=== PATIENT | female | born 1990 | race Two or more races ===

== ENCOUNTER 2020-10-30 10:13 | Outpatient (REF) | payer MEDICAID, SELFPAY ==
[2020-10-31 08:39] LABS: BV Int Neg Control Negative (Negative); BV Int Pos Control Positive (Positive)
[2020-10-31 08:54] LABS: CT PCR NOT DETECTED (Not Detect.); NG PCR DETECTED (Not Detect.)
== END 2020-10-30 10:14 | disposition home or self-care (01) ==
LOC: HO.LAB 10:13
PROVIDERS: Visit Provider Advanced Practice Midwife
DX: Z11.3 Encounter for screening for infections with a predominantly sexual mode of transmission (principal); Z20.2 Contact with and (suspected) exposure to infections with a predominantly sexual mode of transmission
CPT/HCPCS: 87480; 87491; 87510; 87591; 87660; 99212

== ENCOUNTER → 2020-11-09 13:31 | Outpatient (BNVA) | payer MEDICAID, SELFPAY | PROVIDERS: Visit Provider Advanced Practice Midwife ==

== ENCOUNTER → 2020-11-10 12:50 | Outpatient (BNVA) | payer MEDICAID, SELFPAY | PROVIDERS: Visit Provider Advanced Practice Midwife | DX: A54.9 Gonococcal infection, unspecified (principal) | CPT/HCPCS: 96372; 99211; J0696 ==

== ENCOUNTER 2021-01-13 15:43 | Emergency (ER) | payer MEDICAID, SELFPAY | END 2021-01-13 18:26 | disposition left against medical advice (07) | PROVIDERS: Emergency Provider Emergency Medicine | DX: J02.9 Acute pharyngitis, unspecified (principal) ==

== ENCOUNTER → 2021-07-02 12:31 | Outpatient (BNVA) | payer MEDICAID, SELFPAY | PROVIDERS: PCP Internal Medicine; Visit Provider Internal Medicine Pulmonary Disease | DX: J45.909 Unspecified asthma, uncomplicated (principal); Z91.09 Other allergy status, other than to drugs and biological substances | CPT/HCPCS: 99202 ==

== ENCOUNTER 2021-07-16 09:46 | Outpatient (REF) | payer MEDICAID, SELFPAY ==
[2021-07-16 10:04] LABS: MANUAL DIFF FLAG NO
[2021-07-16 10:13] LABS: Basophils Percent Auto 0.3 % (0-2); Eosinophils Percent Auto 0.5 % (0-4); Hemoglobin 12.2 g/dl (12.0-16.0); Imm Gran Abs Auto 0.01 X10*3/uL (0.00-0.03); Imm Gran Pct Auto 0.2 % (0.0-0.4); Lymphocytes Absolute Auto 1.6 X10*3/uL (1.2-4.9); Lymphocytes Percent Auto 26.7 % (20-40); Mean Corpuscular HGB Conc 33.9 g/dl (31.0-35.0); Mean Corpuscular Volume 91.4 fL (80.0-98.0); Mean Platelet Volume 9.5 fL (9.4-12.3); Monocytes Absolute Auto 0.6 X10*3/uL (0.1-1.2); Monocytes Percent Auto 10.2 % (2-11); Neutrophils Absolute Auto 3.7 x10*3/uL (2.0-8.3); Neutrophils Percent Auto 62.1 % (45-73); Platelet Count 360 X10*3/uL (160-400); Red Blood Count 3.94 X10*6/uL (4.20-5.50); Red Cell Distribution Width 12.4 % (11.0-16.0); White Blood Count 5.9 X10*3/uL (4.8-10.8)
== END 2021-07-16 09:47 | disposition home or self-care (01) ==
LOC: HO.LAB 09:46
PROVIDERS: PCP Internal Medicine; Visit Provider Internal Medicine Pulmonary Disease
DX: Z91.09 Other allergy status, other than to drugs and biological substances (principal)
CPT/HCPCS: 36415; 82785; 85025; 86003

== ENCOUNTER 2021-10-30 09:26 | Outpatient (REF) | payer MEDICAID, SELFPAY ==
[2021-10-30 11:26] LABS: HIV AB/AG Nonreactive (Nonreactive); HIV Num 1 0.08 S/CO (0.00-0.99); Hepatitis B Surface Antigen Negative (Negative)
[2021-10-30 11:28] LABS: ~HepC Num1 0.12 S/CO (0.00-0.79); ~Hepatitis C Antibody Nonreactive (Nonreactive)
[2021-10-30 14:50] LABS: CT PCR NOT DETECTED (Not Detect.); NG PCR NOT DETECTED (Not Detect.)
[2021-10-31 04:27] LABS: Syphilis Screen Nonreactive (Nonreactive)
[2021-10-31 09:22] LABS: BV Int Neg Control Negative (Negative); BV Int Pos Control Positive (Positive)
== END 2021-10-30 09:27 | disposition home or self-care (01) ==
LOC: HO.LAB 09:26
PROVIDERS: PCP Internal Medicine; Visit Provider Obstetrics & Gynecology
DX: Z11.3 Encounter for screening for infections with a predominantly sexual mode of transmission (principal); Z32.02 Encounter for pregnancy test, result negative
CPT/HCPCS: 36415; 81025; 86780; 86803; 87340; 87389; 87480; 87491; 87510; 87591; 87660; 99212

== ENCOUNTER 2022-05-05 07:05 | Emergency (ER) | payer MEDICAID, SELFPAY ==
--- NOTE | ~2022-05-05 | XR_ITS ---
EXAMINATION: XR FOOT, RIGHT CLINICAL INFORMATION: Right foot pain and swelling. COMPARISON: None TECHNIQUE: AP, lateral, and oblique views of the right foot. FINDINGS: Minimal first metatarsophalangeal degenerative joint changes are seen. There is no acute fracture or dislocation. The tarsal bones are normally aligned. Mild soft tissue fullness is seen medially at the first metatarsophalangeal joint. XR/XR foot RT 2V IMPRESSION: Mild soft tissue fullness medial to the first metatarsophalangeal joint and underlying minimal degenerative joint changes, but no acute abnormality. Correlate clinically.
[2022-05-05 07:14] VITALS: BP 113/57; PULSE 79; RESP 18; TEMP 37; O2SAT 99; BMI 23.8
--- NOTE | 2022-05-05 09:57 | ED.EXTPRO ---
HPI - Extremity Problem General Chief complaint: Extremity Problem Stated complaint: R foot toe pain Time Seen by Provider: 05/05/22 09:57 History of Present Illness HPI Narrative: Patient complains of chronic right big toe and foot pain for several years after she broke it several years ago The pain is constant but periodically flares up and today it is much worse than normal with no new injury no fever no redness Related Data Home Medications Medication Instructions Recorded Confirmed albuterol sulfate 90 mcg/actuation 2 puff inhalation Q6H PRN 10/30/20 11/09/20 aerosol inhaler (ProAir HFA) quetiapine 50 mg tablet (Seroquel) 50 mg PO DAILY 11/09/20 11/09/20 Previous Rx's Medication Instructions Recorded ipratropium 0.5 mg-albuterol 3 mg 3 ml inhalation Q4-6H PRN wheezing 07/02/21 (2.5 mg base)/3 mL nebulization 30 days #180 mL soln metronidazole 500 mg tablet 500 mg PO BID 7 days #14 tabs 11/15/21 ibuprofen 600 mg tablet 600 mg PO Q6H PRN pain #20 tabs 05/05/22 ibuprofen 600 mg tablet 600 mg PO Q6H PRN pain #20 tabs 05/05/22 oxycodone 5 mg tablet 5 mg PO Q6H PRN pain #10 tabs 05/05/22 oxycodone 5 mg tablet 5 mg PO Q6H PRN pain #14 tabs 05/05/22 Allergies Allergy/AdvReac Type Severity Reaction Status Date / Time No Known Allergies Allergy Mild NOT Verified 07/02/21 13:11 APPLICABLE Review of Systems Review of Systems: Positive for right foot and right big toe pain Negatives are no fever no chills no dizziness weakness no headache no neck pain no back pain no radiating pain no rash no numbness no weakness no tingling no other joint pains Yes all other systems are reviewed and are negative PMFSH Past Medical History Source: nursing notes reviewed Medical History Asthma Social History Social History Alcohol intake: current Alcohol intake frequency: holidays/special occasions only Cigarettes Per Day: 4 Advance Directives: No Advance Directives Information Provided: No Gender identity: Female Physical Exam Vital Signs: Vital Signs: Last Vital Signs Temp 98.6 F 05/05/22 07:14 Pulse 79 05/05/22 07:14 Resp 18 05/05/22 07:14 BP 113/57 L 05/05/22 07:14 Pulse Ox 99 05/05/22 07:14 O2 Del Method 05/05/22 07:14 BMI result Body Mass Index 23.8 General appearance no distress Head is normocephalic atraumatic Neck is supple Respiratory no distress Extremities full range of motion x4 including right foot and right toe The right foot is normal in color there is no redness no warmth, there is tenderness around the proximal phalanx of the right big toe as well as the MCP joint and the distal foot near the base of the right big toe, it is not red it is not hot, skin is intact and neurovascular intact distal Neuro no focal motor sensory deficit Course Course Course Narrative: Patient with a flare up of right big toe pain was crying and anxious and was given Ativan as she says if she has a history of anxiety and it was helpful and she was able to be relaxed and she did describe chronic continuous pain, today it is similar but some walk worse We discussed the possibility of gout and she says that she has had this pain for years so I did not think it was gout She is prescribed analgesics can referred to nurse case management or orthopedist, she has not seen a either since the injury many years ago No sign of any infection now and she is discharged, she walked with a slight limp but was easily able to ambulate Discharge Plan Discharge Clinical Impression: Great toe pain, Arthralgia of toe of right foot Patient Disposition: Home, Self-Care Additional Instructions: As her pain has good been going on for a long time and you have not seen a specialist I recommend follow with a nurse case management or an orthopedist Right now with there is no sign of any infection or any new bony injury Return any time if worse Prescriptions: New oxycodone 5 mg tablet 5 mg PO Q6H PRN (Reason: pain) Qty: 10 0RF Rx Instructions: Partial Fill upon patient request. ibuprofen 600 mg tablet 600 mg PO Q6H PRN (Reason: pain) Qty: 20 0RF oxycodone 5 mg tablet 5 mg PO Q6H PRN (Reason: pain) Qty: 14 0RF Rx Instructions: Partial Fill upon patient request. ibuprofen 600 mg tablet 600 mg PO Q6H PRN (Reason: pain) Qty: 20 0RF No Action metronidazole 500 mg tablet 500 mg PO BID 7 Days Qty: 14 0RF quetiapine [Seroquel] 50 mg tablet 50 mg PO DAILY albuterol sulfate [ProAir HFA] 90 mcg/actuation HFA aerosol inhaler 2 puff inhalation Q6H PRN ipratropium-albuterol 0.5 mg-3 mg(2.5 mg base)/3 mL solution for nebulization 3 ml inhalation Q4-6H PRN (Reason: wheezing) 30 Days Qty: 180 6RF Referrals: Jamarcus Hair MD [Physician] - (Chronic foot pain) Rj Boone DPM [Physician] - (Chronic pain right big toe and foot)
[2022-05-05] MEDS: Ibuprofen 600 MG TABLET PO (10:10)
[2022-05-05] MEDS: LORazepam 1 MG TABLET PO (10:10)
[2022-05-05] MEDS: oxyCODONE HCl Immed Release 5 MG TABLET PO (10:10)
== END 2022-05-05 10:34 | disposition home or self-care (01) ==
PROVIDERS: Emergency Provider Emergency Medicine Emergency Medical Services; PCP Internal Medicine
DX: M25.571 Pain in right ankle and joints of right foot (principal); M79.674 Pain in right toe(s)
CPT/HCPCS: 73620; 99283

== ENCOUNTER 2022-09-04 09:43 | Outpatient (REF) | payer MEDICAID, SELFPAY ==
[2022-09-04 11:49] LABS: Syphilis Screen Nonreactive (Nonreactive)
[2022-09-04 11:50] LABS: HBc Num1 0.09 S/CO (0.00-0.79); HIV AB/AG Nonreactive (Nonreactive); HIV Num 1 0.09 S/CO (0.00-0.99); Hepatitis B Core Antibody Nonreactive (Nonreactive); ~HepC Num1 0.13 S/CO (0.00-0.79); ~Hepatitis C Antibody Nonreactive (Nonreactive)
[2022-09-04 16:43] LABS: CT PCR NOT DETECTED (Not Detect.); NG PCR NOT DETECTED (Not Detect.)
[2022-09-05 12:39] LABS: BV Int Neg Control Negative (Negative); BV Int Pos Control Positive (Positive)
== END 2022-09-04 09:44 | disposition home or self-care (01) ==
LOC: HO.LAB 09:43
PROVIDERS: PCP Internal Medicine; Visit Provider Advanced Practice Midwife
DX: Z20.2 Contact with and (suspected) exposure to infections with a predominantly sexual mode of transmission (principal); F17.210 Nicotine dependence, cigarettes, uncomplicated; Z31.69 Encounter for other general counseling and advice on procreation
CPT/HCPCS: 0353U; 36415; 86704; 86780; 86803; 87389; 87480; 87510; 87660; 99212

== ENCOUNTER 2022-09-04 10:22 | Outpatient (REF) | payer MEDICAID, SELFPAY | END 2022-09-04 10:23 | disposition home or self-care (01) | LOC: HO.LNP 10:22 | PROVIDERS: Visit Provider Advanced Practice Midwife | DX: Z13.89 Encounter for screening for other disorder (principal) ==

== ENCOUNTER 2022-12-23 13:15 | Emergency (ER) | payer MEDICAID, SELFPAY ==
--- NOTE | 2022-12-23 14:15 | ED.HA ---
HPI - Headache General Chief Complaint: Headache Stated Complaint: PALMA,VOMITED THIS AM Related Data Home Medications Medication Instructions Recorded Confirmed albuterol sulfate 90 mcg/actuation 2 puff inhalation Q6H PRN 10/30/20 11/09/20 aerosol inhaler (ProAir HFA) quetiapine 50 mg tablet (Seroquel) 50 mg PO DAILY 11/09/20 11/09/20 fluticasone 500 mcg-salmeterol 50 1 ea inhalation 09/04/22 mcg/dose blistr powdr for inhalation (Advair Diskus) Previous Rx's Medication Instructions Recorded ipratropium 0.5 mg-albuterol 3 mg 3 ml inhalation Q4-6H PRN wheezing 07/02/21 (2.5 mg base)/3 mL nebulization 30 days #180 mL soln ibuprofen 600 mg tablet 600 mg PO Q6H PRN pain #20 tabs 05/05/22 ibuprofen 600 mg tablet 600 mg PO Q6H PRN pain #20 tabs 05/05/22 vitamin with calcium 1 tab PO DAILY #30 tabs 09/04/22 no.72-iron 27 mg-folic acid 1 mg tablet ( Vitamins Plus Low Iron) Allergies Allergy/AdvReac Type Severity Reaction Status Date / Time No Known Allergies Allergy Mild NOT Verified 09/04/22 09:54 APPLICABLE [facility] Past Medical History Medical History (Updated 12/24/22 @ 00:24 by David Chavez) Asthma Infertility management Surgical History (Updated 09/04/22 @ 09:56 by GUY Rizvi) Hx of section Social History Social History (Updated 09/04/22 @ 09:56 by GUY Rizvi) Alcohol intake: current Alcohol intake frequency: holidays/special occasions only Cigarettes Per Day: 5 Advance Directives: No Advance Directives Information Provided: No Gender identity: Female Physical Exam Vital Signs: Vital Signs: Last Vital Signs Temp 97.9 F 12/23/22 14:16 Pulse 60 12/23/22 14:16 Resp 18 12/23/22 14:16 BP 132/79 12/23/22 14:16 Pulse Ox 100 12/23/22 14:16 O2 Del Method Room Air 12/23/22 14:16 BMI result Body Mass Index 23.9 Course Course Course Narrative: This is a rapid medical exam. Deferred additional HPI, ROS, PE to primary provider. 32 yo female with history of asthma here with complaints of headache, vomiting, photophobia/phonophobia which began today at 0500 with no known injury or trauma. NO migraine history. LMP 4/5. Will need labs, UA, ur preg VSS Discharge Plan Discharge Clinical Impression: Headache Patient Disposition: Elopement Prescriptions: No Action ibuprofen 600 mg tablet 600 mg PO Q6H PRN (Reason: pain) Qty: 20 0RF ibuprofen 600 mg tablet 600 mg PO Q6H PRN (Reason: pain) Qty: 20 0RF quetiapine [Seroquel] 50 mg tablet 50 mg PO DAILY albuterol sulfate [ProAir HFA] 90 mcg/actuation HFA aerosol inhaler 2 puff inhalation Q6H PRN ipratropium-albuterol 0.5 mg-3 mg(2.5 mg base)/3 mL solution for nebulization 3 ml inhalation Q4-6H PRN (Reason: wheezing) 30 Days Qty: 180 6RF fluticasone propion-salmeterol [Advair Diskus] 500-50 mcg/dose blister with device 1 ea inhalation Vitamin Plus Low Iron 27 mg iron- 1 mg tablet 1 tab PO DAILY Qty: 30 11RF Interventions: ED Discharge Assessment Last Done: 12/23/22 17:09 Discharge Date/Time: 12/23/22 17:09
[2022-12-23 14:16] VITALS: BP 132/79; PULSE 60; RESP 18; TEMP 36.6; O2SAT 100; BMI 23.9
== END 2022-12-23 17:09 | disposition left against medical advice (07) ==
PROVIDERS: Emergency Provider Emergency Medicine
DX: R51.9 Headache, unspecified (principal)
CPT/HCPCS: 99282

== ENCOUNTER 2023-09-02 11:15 | Outpatient (AMB) | payer MEDICAID, SELFPAY ==
--- NOTE | 2023-09-02 11:17 | MHC.OFFVIS ---
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 Present Allergies No Known Allergies Allergy (Mild, Verified 09/02/23 11:17) NOT APPLICABLE Medication List - Last Reconciled 09/02/23 by Ayana Lim CNM albuterol sulfate 90 mcg/actuation (ProAir HFA) 2 puffs inhalation Q6H PRN clonidine HCl 0.1 mg PO BEDTIME fluticasone propion-salmeterol 500-50 mcg/dose (Advair Diskus) 1 ea inhalation ibuprofen 600 mg PO Q6H PRN ipratropium-albuterol 0.5 mg-3 mg(2.5 mg base)/3 mL 3 mL inhalation Q4-6H PRN 30 days quetiapine (Seroquel) 50 mg PO DAILY Is last menstrual period known: Yes Last menstrual period: 08/15/23 Do you need a note to return to daycare/school/sports/work: No HPI 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 She wants to get tested for everything just to be sure she uses condoms for control. Her last menstrual period was August 15 it comes regularly last 7 days. 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 Her twins who are 13 are adopted out but it has an open adoption so she is is able to see them. She has no particular exceptional student education teacher concerns right now. She is happy with condoms she has used other methods in the past including a IUD that fell out some years ago. [facility] Medical History Infertility management Asthma Surgical History Hx of section Social History Alcohol intake: current Alcohol intake frequency: holidays/special occasions only Cigarettes Per Day: 5 Gender identity: Female Female Reproductive History Menstrual Age of Menarche: 15 Duration of menses: 3-5 days Date of last menstrual period: 08/15/23 control method: condoms Total pregnancies: 2 Full term: 3 History of abnormal pap smear: No (per patient 2022,neg) Physical Exam Vital Signs: Last Vital Signs BP 110/62 09/02/23 11:26 BMI result Body Mass Index 23.6 Const Other: Thin frame has scars from strong muscle tone General: healthy appearing, comfortable, no acute distress, well developed and alert Nutritional Appearance: average body habitus Orientation/consciousness: patient oriented x3 Limitations: no limitations HEENT Head: Yes normocephalic Neck Neck: Yes normal visual inspection Chest Chest palpation & inspection: normal inspection of the chest Breast/axilla inspection: normal inspection of the breasts and normal inspection of the axillae Breast/axilla palpation: normal palpation of the breasts and normal palpation of the axillae Resp Effort & Inspection: normal respiratory effort GI Inspection: Yes normal to inspection, No Abdominal wall edema and No distended Palpation (GI): Soft to palpation and nontender Other: External exam within normal limits mucousy clear slightly bubbly discharge. Cervix is multiparous very anterior. Uterus is also anterior anteverted as well mobile nontender not enlarged. Adnexa not enlarged nontender very good tone with Kegel. General: Yes bladder normal to palpation External Female Exam: normal external appearance and normal appearance of the urethra Speculum Exam - Vagina: normal appearance of the vagina, normal palpation and normal vaginal discharge Speculum Exam - Cervix: normal appearance of the cervix, normal palpation and nontender Bimanual exam- vagina & uterus: normal bimanual exam, normal palpation, uterine size normal, bladder normal to palpation, consistency normal, normal palpation, uterine mobility normal, uterine shape normal, No Cervical tenderness present, non-tender and no cervical motion tenderness Bimanual Exam- Adnexa, other: normal adnexae, no masses, normal and No adnexal tenderness Neuro General: patient oriented x3 Assessment & Plan Assessment & Plan (1) Screen for STD (sexually transmitted disease): Comment: Previous positive findings in 2020. Code(s): Z11.3 - Encounter for screening for infections with a predominantly sexual mode of transmission (2) Well woman exam with routine gynecological exam: Code(s): Z01.419 - Encounter for gynecological examination (general) (routine) without abnormal findings (3) Cervical cancer screening: Comment: No previous Paps found in system. Code(s): Z12.4 - Encounter for screening for malignant neoplasm of cervix Plan -----Discussed in this visit the following: healthy balanced diet, regular and consistent exercise, getting recommended health screens, doing the best she can for her particular health concerns, kegel exercises, pap smear screening and followup recommendations, mammography screening and SBE, normal changes in cycles in her life stage--- . Pap smear was done as well as testing for gonorrhea chlamydia trichomoniasis Candy and Gardnerella. Orders were placed for her to get HIV screen as well as hepatitis B hepatitis C and syphilis and she may go downstairs today if she wishes. She will be notified about any positive findings. She is happy with condoms for now. Orders: Orders Hepatitis B Surface Antigen Today Z11.3 - Encounter for screening for infections with a predominantly sexual mode of transmission Hepatitis C Antibody Today Z11.3 - Encounter for screening for infections with a predominantly sexual mode of transmission HIV Ab/Ag Today Z11.3 - Encounter for screening for infections with a predominantly sexual mode of transmission Syphilis Screen Today Z11.3 - Encounter for screening for infections with a predominantly sexual mode of transmission Coding Level of Care Code Est Pt Prev Care 18-39y(62289) Diagnoses Screen for STD (sexually transmitted disease) Z11.3 Well woman exam with routine gynecological exam Z01.419 Cervical cancer screening Z12.4
[2023-09-02 11:26] VITALS: BP 110/62; BMI 23.6
== END 2023-09-02 12:17 | disposition home or self-care (01) ==
LOC: HO.HWSM 11:15
PROVIDERS: Visit Provider Advanced Practice Midwife
DX: Z11.3 Encounter for screening for infections with a predominantly sexual mode of transmission (principal); Z01.419 Encounter for gynecological examination (general) (routine) without abnormal findings; Z12.4 Encounter for screening for malignant neoplasm of cervix
CPT/HCPCS: 99395

== ENCOUNTER 2023-09-02 11:15 | Outpatient (REF) | payer MEDICAID, SELFPAY ==
[2023-09-09 04:38] LABS: HPV mRNA E6/E7 rflx Not Detected (Not Detected)
== END 2023-09-02 11:16 | disposition home or self-care (01) ==
LOC: HO.LAB 11:15
PROVIDERS: Visit Provider Advanced Practice Midwife
DX: Z01.419 Encounter for gynecological examination (general) (routine) without abnormal findings (principal); Z11.3 Encounter for screening for infections with a predominantly sexual mode of transmission; Z79.899 Other long term (current) drug therapy
CPT/HCPCS: 0353U; 86780; 86803; 87340; 87389; 87480; 87510; 87624; 87660; 88142; 99395

== ENCOUNTER 2023-09-02 12:27 | Outpatient (REF) | payer MEDICAID, SELFPAY ==
[2023-09-02 14:28] LABS: Syphilis Screen Nonreactive (Nonreactive)
[2023-09-03 06:03] LABS: HBsAGNum1 0.35 S/CO (0.00-0.99); HIV AB/AG Nonreactive (Nonreactive); HIV Num 1 0.06 S/CO (0.00-0.99); Hepatitis B Surface Antigen Negative (Negative); ~HepC Num1 0.13 S/CO (0.00-0.79); ~Hepatitis C Antibody Nonreactive (Nonreactive)
[2023-09-03 11:16] LABS: CT PCR NOT DETECTED (Not Detect.); NG PCR NOT DETECTED (Not Detect.)
[2023-09-03 13:13] LABS: BV Int Neg Control Negative (Negative); BV Int Pos Control Positive (Positive)
== END 2023-09-02 12:28 | disposition home or self-care (01) ==
LOC: HO.HHCL 12:27
PROVIDERS: Visit Provider Advanced Practice Midwife
DX: Z01.419 Encounter for gynecological examination (general) (routine) without abnormal findings (principal); Z20.2 Contact with and (suspected) exposure to infections with a predominantly sexual mode of transmission
CPT/HCPCS: 0353U; 86780; 86803; 87340; 87389; 87480; 87510; 87660

== ENCOUNTER 2024-04-08 15:45 | Emergency (ER) | payer MEDICAID, SELFPAY ==
--- NOTE | ~2024-04-08 | XR_ITS ---
EXAMINATION: XR FOOT, RIGHT CLINICAL INFORMATION: Pain in the great toe COMPARISON: Right foot May 05, 2022 TECHNIQUE: AP, lateral, and oblique views of the right foot. FINDINGS: Mild joint narrowing of the first metatarsal phalangeal joint. Marginal bone spur/exostosis at the periarticular bone of the head of the first metatarsal at the dorsal lateral side of the metatarsal. No bone erosion. Joint spaces are otherwise normal. No fracture or dislocation. No focal bone lesion or abnormal periosteal reaction. Compared to prior study of May 2022 there is no significant change. XR/XR foot RT min 3V IMPRESSION: 1. Mild joint narrowing of the first metatarsophalangeal joint. 2. Marginal bone spur/exostosis at the head of the first metatarsal. Electronically signed by: Cedrick Rea MD 04/08/2024 04:57 PM EDT
[2024-04-08 15:57] VITALS: BP 164/74; PULSE 77; RESP 16; TEMP 37; O2SAT 99; BMI 24.7
--- NOTE | 2024-04-08 15:57 | ED.EXTPRO ---
HPI - Extremity Problem General Chief complaint: Extremity Injury, Lower Stated complaint: right toe pain Time Seen by Provider: 04/08/24 16:50 Source: patient Mode of arrival: ambulatory Limitations: no limitations History of Present Illness ED Provider: Reina MEADOWS HPI Narrative: Year old female presents with right great toe pain for the past 13 years she reports it started after she broke her toe 13 years ago and since then has been having pain. Denies any recent injury. Reports range of motion is painful. Has not seen a specialist for this. Denies numbness, tingling, fevers, chills. Patient works at [employer] and is on her feet often Related Data Home Medications ?Medication ?Instructions ?Recorded ?Confirmed albuterol sulfate 90 mcg/actuation 2 puff inhalation Q6H PRN 10/30/20 09/02/23 aerosol inhaler (ProAir HFA) quetiapine 50 mg tablet (Seroquel) 50 mg PO DAILY 11/09/20 09/02/23 fluticasone 500 mcg-salmeterol 50 1 ea inhalation 09/04/22 09/02/23 mcg/dose blistr powdr for inhalation (Advair Diskus) clonidine HCl 0.1 mg tablet 0.1 mg PO BEDTIME 09/02/23 09/02/23 Previous Rx's ?Medication ?Instructions ?Recorded ipratropium 0.5 mg-albuterol 3 mg 3 ml inhalation Q4-6H PRN wheezing 07/02/21 (2.5 mg base)/3 mL nebulization 30 days #180 mL soln ibuprofen 600 mg tablet 600 mg PO Q6H PRN pain #20 tabs 05/05/22 naproxen 500 mg tablet 500 mg PO BID PRN pain #14 tabs 04/08/24 prednisone 20 mg tablet 20 mg PO DAILY 5 days #5 tabs 04/08/24 Allergies Allergy/AdvReac Type Severity Reaction Status Date / Time No Known Allergies Allergy Mild NOT Verified 04/08/24 15:59 APPLICABLE Review of Systems Review of Systems: Yes all other systems are reviewed and are negative [facility] Past Medical History Attestation statement: The following information was validated with the patient. Source: old records reviewed and nursing notes reviewed Medical History Infertility management Asthma Surgical History Hx of section Social History Social History Alcohol intake: current Alcohol intake frequency: holidays/special occasions only Cigarettes Per Day: 5 Advance Directives: No Advance Directives Information Provided: Yes Gender identity: Female Physical Exam Vital Signs: Vital Signs: Last Vital Signs Temp 98.6 F 04/08/24 15:57 Pulse 77 04/08/24 15:57 Resp 16 04/08/24 15:57 BP 164/74 H 04/08/24 15:57 Pulse Ox 99 04/08/24 15:57 BMI result Body Mass Index 24.7 vss Appearance: Alert.? Oriented X3.? No acute distress.? Head: Normocephalic, atraumatic, no step-offs or deformities Eyes: Pupils equal, round and reactive to light.? Neck: Normal inspection.? Neck supple.? CVS: Pulses normal.? Respiratory: No respiratory distress. Skin: Skin warm and dry.? Normal skin color.? Normal skin turgor.? Extremities: No lower extremity edema.? No calf ttp. 5/5 strength to bilateral upper and lower extremities 2+ dorsalis pedis, anterior tibialis posterior tibialis pulses equal bilateral. Slightly painful range of motion to right great toe. All other toes normal. Normal distal sensation. No footdrop normal capillary refill to bilateral lower extremities Neuro: Oriented X 3.? No motor deficit.? No sensory deficit. CN 2-12 intact Course Course Course Narrative: This is a Rapid Medical Examination (RME) performed by Aimee Davidson PA-C in triage. Full HPI, ROS, assessment and treatment plan per primary provider in the Main ED. 33 yo female presents to the ER for evaluation of presents for evaluation of acute on chronic right great toe pain after she broke it 13 years ago. denies any recent injury but the pain is worse. limited ROM and tenderness on exam. Plan: xr foot Reevaluation(s) Reevaluation #1: X-ray of foot with mild joint narrowing of the 1st metatarsophalangeal joint marginal bone spur at the head of the 1st metatarsal. Will discharge with naproxen and prednisone as well as ortho follow-up. Educated patient on diagnosis and treatment plan, answered all question, patient verbalizes understanding. At this time patient will be discharged home, advised to return with new or worsening symptoms. Educated on worrisome signs and symptoms and when to return. At this time I feel comfortable discharge home. Time: 17:06 Medical Decision Making Medical Decision Making MDM Narrative: 33-year-old female presents with right big toe pain for the past 13 years no new injury, atraumatic. Physical exam 2+ dorsalis pedis, anterior tibialis posterior tibialis pulses equal bilateral. Slightly painful range of motion to right great toe. All other toes normal. Normal distal sensation. No footdrop normal capillary refill to bilateral lower extremitiesign History and physical exam concerning for inflammatory arthritis versus bone spur. Unlikely gout, pseudogout, septic joint, neurovascular compromise, acute threat to limb. Plan imaging. Differential Diagnosis Differential Diagnoses: The differential diagnosis associated with the presentation includes History and physical exam concerning for inflammatory arthritis versus bone spur. Unlikely gout, pseudogout, septic joint, neurovascular compromise, acute threat to limb. Admission/Observation Consideration of admission/observation: Escalation of care including admission/observation considered unlikley Independent Interpretation I performed an independent interpretation of an: Plain X-Ray (XR/XR foot RT min 3V IMPRESSION: 1. Mild joint narrowing of the first metatarsophalangeal joint. 2. Marginal bone spur/exostosis at the head of the first metatarsal.) Radiology Impression Discussion of test interpretation with radiology: I have reviewed the radiologist's reading. External Record Review External record reviewed: Office record, Outpatient record, Prior outpatient labs and Prior outpatient radiology Prescription Management I considered prescription management with: Pain Medication Critical Care Time Critical Care Time Critical Care Time: No Discharge Plan Discharge Clinical Impression: Pain of right great toe Patient Disposition: Home, Self-Care Instructions: Arthralgia (ED) Additional Instructions: Take your medications as prescribed. If you were prescribed antibiotics today, it is important that you take your medication to their entirety, do not skip any doses, do not finish them early. Follow-up with your primary care provider this week. Return to the emergency department with new or worsening symptoms. Such as fevers, chills, chest pain, shortness of breath, nausea, vomiting, dizziness, headache, vision changes, lethargy In case of emergency call 911 Naproxen has been sent to your pharmacy, you tolerated this well in the department. Please take this as prescribed do not take this with ibuprofen, or other NSAIDs, do not mix this with alcohol. Side effects of this medication including increased risk for bleeding and possible kidney injury. XR/XR foot RT min 3V IMPRESSION: 1. Mild joint narrowing of the first metatarsophalangeal joint. 2. Marginal bone spur/exostosis at the head of the first metatarsal. Prescriptions: New prednisone 20 mg tablet 20 mg PO DAILY 5 Days Qty: 5 0RF naproxen 500 mg tablet 500 mg PO BID PRN (Reason: pain) Qty: 14 0RF Rx Instructions: Take with food No Action ibuprofen 600 mg tablet 600 mg PO Q6H PRN (Reason: pain) Qty: 20 0RF quetiapine [Seroquel] 50 mg tablet 50 mg PO DAILY albuterol sulfate [ProAir HFA] 90 mcg/actuation HFA aerosol inhaler 2 puff inhalation Q6H PRN ipratropium-albuterol 0.5 mg-3 mg(2.5 mg base)/3 mL solution for nebulization 3 ml inhalation Q4-6H PRN (Reason: wheezing) 30 Days Qty: 180 6RF fluticasone propion-salmeterol [Advair Diskus] 500-50 mcg/dose blister with device 1 ea inhalation clonidine HCl 0.1 mg tablet 0.1 mg PO BEDTIME Referrals: [facility] Sur[facility] [Provider Group] - 2 days Dafne Correa MD [Primary Care Provider] - 2 days Print Language: Romansh
[2024-04-08 17:32] VITALS: BP 164/74; PULSE 77; RESP 16; TEMP 37; O2SAT 99
== END 2024-04-08 17:37 | disposition home or self-care (01) ==
PROVIDERS: Emergency Provider Emergency Medicine; PCP Internal Medicine
DX: M79.674 Pain in right toe(s) (principal)
CPT/HCPCS: 73630; 99283

== ENCOUNTER 2024-04-21 09:23 | Outpatient (REF) | payer MEDICAID, SELFPAY ==
--- NOTE | ~2024-04-21 | XR_ITS ---
EXAMINATION: XR FOOT, RIGHT CLINICAL INFORMATION: S92.351A - Displaced fracture of fifth metatarsal bone, right foot, init... Attention great toe. COMPARISON: 04/08/2024. 05/05/2022. TECHNIQUE: AP, lateral, and oblique views of the right foot. FINDINGS: Mild joint narrowing of the first metatarsal phalangeal joint. Marginal osteophytic spurring at the dorsal medial aspect of the joint. No periarticular bone erosion. Joint spaces are otherwise normal. No fracture or dislocation. No focal bone lesion or abnormal periosteal reaction. No soft tissue abnormalities. Compared to prior study of May 2022 there is no significant change. XR/XR foot RT min 3V IMPRESSION: 1. Mild to moderate osteoarthrosis first metatarsal phalangeal joint. No definite inflammatory erosions. 2. No significant change compared with 05/05/2022, and 04/08/2024. Electronically signed by: Manuel Donovan MD 06/30/2024 03:03 PM DARA
== END 2024-04-21 09:24 | disposition home or self-care (01) ==
LOC: HO.HOSX 09:23
DX: S92.351A Displaced fracture of fifth metatarsal bone, right foot, initial encounter for closed fracture (principal); X58.XXXA Exposure to other specified factors, initial encounter; Y93.9 Activity, unspecified; Y92.9 Unspecified place or not applicable; Y99.9 Unspecified external cause status
CPT/HCPCS: 73630

== ENCOUNTER → 2024-04-21 09:28 | Outpatient (BNV) | payer MEDICAID, SELFPAY | PROVIDERS: Visit Provider Radiology Diagnostic Radiology | DX: M19.071 Primary osteoarthritis, right ankle and foot (principal) | CPT/HCPCS: 73630 ==

== ENCOUNTER 2024-04-21 09:38 | Emergency (ER) | payer MEDICAID, SELFPAY ==
[2024-04-21 10:02] VITALS: BP 138/45; PULSE 73; RESP 20; TEMP 36.2; O2SAT 98; BMI 21.8
--- NOTE | 2024-04-21 10:59 | ED.ALLEREA ---
HPI - Allergic Reaction General Chief complaint: Allergic Reaction Stated complaint: allergic reaction Time Seen by Provider: 04/21/24 10:59 Source: patient, RN notes reviewed and old records reviewed Mode of arrival: ambulatory History of Present Illness ED Provider: Tere Luke PA-C HPI narrative: 33-year-old female with a past medical history of asthma presenting to the ED complaining of allergic reaction with diffuse body pruritis x4 days s/p drinking pumpkin beer at at [employer] states this was her 1st time having that. Has known anaphylaxis to peanuts, carries EpiPen. Admits to taking Benadryl with some relief. Reports slightly scratchy throat. Denies SOB, throat closing sensation, difficulty or inability to swallow, rash. Related Data Home Medications ?Medication ?Instructions ?Recorded ?Confirmed albuterol sulfate 90 mcg/actuation 2 puff inhalation Q6H PRN 10/30/20 09/02/23 aerosol inhaler (ProAir HFA) quetiapine 50 mg tablet (Seroquel) 50 mg PO DAILY 11/09/20 09/02/23 fluticasone 500 mcg-salmeterol 50 1 ea inhalation 09/04/22 09/02/23 mcg/dose blistr powdr for inhalation (Advair Diskus) clonidine HCl 0.1 mg tablet 0.1 mg PO BEDTIME 09/02/23 09/02/23 lamotrigine 100 mg tablet 100 mg PO QAM 04/21/24 Previous Rx's ?Medication ?Instructions ?Recorded ipratropium 0.5 mg-albuterol 3 mg 3 ml inhalation Q4-6H PRN wheezing 07/02/21 (2.5 mg base)/3 mL nebulization 30 days #180 mL soln naproxen 500 mg tablet 500 mg PO BID PRN pain #14 tabs 04/08/24 prednisone 20 mg tablet 40 mg (2 x 20 mg) PO DAILY 3 days 04/21/24 #6 tabs Allergies Allergy/AdvReac Type Severity Reaction Status Date / Time peanut Allergy Anaphylaxis Verified 04/21/24 14:56 Review of Systems Review of Systems: Yes all other systems are reviewed and are negative Constitutional: Constitutional: Reports as per HPI [facility] Past Medical History Attestation statement: The following information was validated with the patient. Source: old records reviewed Medical History Infertility management Asthma Surgical History Hx of section Social History Social History (Updated 04/21/24 @ 14:58 by RYAN Hung) Alcohol intake: current Alcohol intake frequency: holidays/special occasions only Patient Tobacco Use Status: Current someday Tobacco user Tobacco use type: Cigarette Cigarettes Per Day: 5 Substance Use Type: Marijuana Current occupational status: employed Current occupation: [employer] Gender identity: Female Physical Exam ED Vital Signs: Vital Signs - 24 hr 04/21/24 10:02 04/21/24 11:44 Temperature 97.1 F 97.5 F Pulse Rate 73 68 Respiratory Rate 20 16 Blood Pressure 138/45 L 115/52 L Pulse Oximetry 98 99 Oxygen Delivery Method Room Air Room Air BMI result Body Mass Index 21.8 Const General: cooperative, healthy appearing and no acute distress Orientation/consciousness: patient oriented x3 Limitations: no limitations HENMT Head: Yes normal to inspection and Yes atraumatic Ears: hearing grossly normal bilaterally General nose exam: Normal external nose present Face and sinus: Yes normal facial exam Mouth: Normal oral and palatal mucosa present and no drooling Throat: Yes posterior oropharynx normal, Yes uvula midline, No peritonsillar mass, No uvula laterally displaced and No uvular edema Eyes General: appearance normal, both eyes and all related structures EOM: EOMs intact bilaterally Neck Neck: Yes normal visual inspection and Yes no meningeal signs Resp Effort & Inspection: normal respiratory effort, no respiratory distress and no stridor Auscultation: clear to auscultation bilaterally, no crackles and no wheezes Cardio Rate: regular rate Heart sounds: S1 normal heart sound present and S2 normal heart sound present Skin Rashes: no rashes Wounds: no wounds Neuro General: patient oriented x3, tone normal and no meningeal signs Cranial nerves: Yes CN's II-XII intact bilaterally Gait exam (Neuro): Normal gait present Extrem General: Yes normal to inspection Course Course Course Narrative: Results discussed with patient including worrisome signs and symptoms and strict return precautions, and when to return to the emergency department. They verbalized understanding and feel safe for discharge at this time. Medications Administered Discontinued Medications Generic Name Dose Route Start Last Admin Trade Name Freq PRN Reason Stop Dose Admin Diphenhydramine HCl 25 mg 04/21/24 11:09 04/21/24 11:14 Diphenhydramine Hcl 25 Mg Capsule PO 04/21/24 11:10 25 mg ONCE ONE Administration Loratadine 10 mg 04/21/24 11:04/21/24 11:14 Loratadine 10 Mg Tablet PO 04/21/24 11:10 10 mg ONCE ONE Administration Prednisone 40 mg 04/21/24 11:04/21/24 11:13 Prednisone 20 Mg Tablet PO 04/21/24 11:10 40 mg ONCE ONE Administration Medical Decision Making Medical Decision Making MDM Narrative: 33-year-old female with a past medical history of asthma presenting to the ED complaining of allergic reaction with diffuse body pruritis x4 days s/p drinking pumpkin beer at at [employer] on exam vital signs stable, NAD, nontoxic appearing, no rash, talking clearly complete sentences, no stridor, lungs CTA. Concern for allergic reaction vs dermatitis. No evidence of anaphylaxis. No cellulitis. Plan: P.o. Benadryl, prednisone, Claritin Please refer to course for remaining clinical decision making, interpretation of labs/imaging results, and discussions with consultants and/or family members. Differential Diagnosis Differential Diagnoses: The differential diagnosis associated with the presentation includes As above External Record Review External record reviewed: Inpatient record, Office record, Outpatient record, Prior outpatient labs, Prior outpatient radiology, Primary care record and Outside ED record Tests considered The following testing was considered but not selected: As above Prescription Management I considered prescription management with: Other Discharge Plan Discharge Clinical Impression: Allergic reaction Patient Disposition: Home, Self-Care Instructions: General Allergic Reaction (ED), Allergy Testing (ED) Additional Instructions: Please continue to take Benadryl at home as needed for itching You may also take Zyrtec or Claritin during the day this will not make you drowsy like Benadryl does You were given a steroid in the emergency department take prednisone as prescribed Please follow-up with an steel manager If you develop any difficulty breathing, throat closing sensation, rash return to the emergency department Prescriptions: New prednisone 20 mg tablet 40 mg PO DAILY 3 Days Qty: 6 0RF No Action naproxen 500 mg tablet 500 mg PO BID PRN (Reason: pain) Qty: 14 0RF Rx Instructions: Take with food quetiapine [Seroquel] 50 mg tablet 50 mg PO DAILY albuterol sulfate [ProAir HFA] 90 mcg/actuation HFA aerosol inhaler 2 puff inhalation Q6H PRN ipratropium-albuterol 0.5 mg-3 mg(2.5 mg base)/3 mL solution for nebulization 3 ml inhalation Q4-6H PRN (Reason: wheezing) 30 Days Qty: 180 6RF fluticasone propion-salmeterol [Advair Diskus] 500-50 mcg/dose blister with device 1 ea inhalation clonidine HCl 0.1 mg tablet 0.1 mg PO BEDTIME lamotrigine 100 mg tablet 100 mg PO QAM Referrals: Mor Medina MD [Physician] - Dafne Correa MD [Primary Care Provider] - 3 days Willis Mcknight DO [Physician] - Edward Peñaloza [Physician] - Stand Alone Forms: Work/School Release Interventions: ED Discharge Assessment Last Done: 04/21/24 11:44 Discharge Date/Time: 04/21/24 11:52 Print Language: Georgian
[2024-04-21] MEDS: predniSONE 20 MG TABLET 40 MG PO (11:13)
[2024-04-21] MEDS: Loratadine 10 MG TABLET PO (11:14)
[2024-04-21] MEDS: diphenhydrAMINE HCL 25 MG CAPSULE PO (11:14)
--- NOTE | 2024-04-21 11:15 | PC.NURSE ---
pt medicated per order
[2024-04-21 11:44] VITALS: BP 115/52; PULSE 68; RESP 16; TEMP 36.4; O2SAT 99
== END 2024-04-21 11:52 | disposition home or self-care (01) ==
PROVIDERS: Emergency Provider Emergency Medicine; PCP Internal Medicine
DX: L50.0 Allergic urticaria (principal); F17.210 Nicotine dependence, cigarettes, uncomplicated; Z79.899 Other long term (current) drug therapy
CPT/HCPCS: 99212; 99282; 99283

== ENCOUNTER 2024-04-21 14:32 | Outpatient (AMB) | payer MEDICAID, SELFPAY ==
--- NOTE | 2024-04-21 14:47 | A.OFFVIS_ITS ---
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 Hx of fractured toes ~13 years ago. Patient reports she fell down the stairs 13 years ago and she was placed in a boot but it never healed correctly. She has sharp and stabbing pain that returned 3 years ago. When she ambulates she is unable to put pressure on her big toe she places more pressure on the lateral aspect of her foot to take the pressure off. She is unable to bend her toe or have any ROM from her pain. She has constant numbness and tingling in her great toe. 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 The patient reports that at that time, she fractured her right great toe, and then ?never healed right?. Patient reports that for approximately last 3 years, she has been experiencing increasing pain in her right great toe, as well as an area of swelling and skin change on the dorsal aspect of the distal metatarsal of the right great toe. The patient reports that she works on her feet, and by the end of the day she is experiencing excruciating pain and numbness in his toe. Patient was previously evaluated in the emergency department, where x-rays revealed a large osteophyte and arthritic changes of the MTP joint of the right great toe. No other acute complaints or concerns at this time. [facility] Medical History Infertility management Asthma Surgical History Hx of section Social History (Updated 04/21/24 @ 14:58 by RYAN Hung) Alcohol intake: current Alcohol intake frequency: holidays/special occasions only Patient Tobacco Use Status: Current someday Tobacco user Tobacco use type: Cigarette Cigarettes Per Day: 5 Substance Use Type: Marijuana Current occupational status: employed Current occupation: [employer] Gender identity: Female Female Reproductive History Menstrual Age of Menarche: 15 Physical Exam Vital Signs: BMI result Body Mass Index 23.8 Extrem Other: Patient is alert, oriented, and in no acute distress. Neuro: Patient reports normal sensation to all digits of the right foot at this time Vascular: Cap refill brisk Pain: Patient reports significant tenderness to palpation about the dorsal and distal aspect of the 1st metatarsal of the right foot, in an area of prominence with overlying skin changes. ROM: Patient is only able to achieve limited flexion and extension of the right great toe, due to pain Skin: No lacerations or abrasions. There is noted to be significant darkening of the skin over an area of bony prominence on the distal right 1st metatarsal, that the patient states has been there for years. General: No ecchymosis, erythema, or evidence of infection. Psych: Appears grossly normal Affect normal Attitude cooperative Results Reviewed Results Reviewed: X-rays obtained in the office today and independently reviewed by me, Azar Rider PA-C, demonstrate large dorsal osteophyte of the 1st metatarsal of the right foot along with arthritic changes of the 1st MTP joint of the right foot. No fracture or acute bony abnormality noted. Assessment & Plan Assessment & Plan (1) Pain of right great toe: Code(s): M79.674 - Pain in right toe(s) Category: Medical (2) Arthritis of first metatarsophalangeal (MTP) joint of right foot: Code(s): M19.071 - Primary osteoarthritis, right ankle and foot Category: Medical Plan 1. 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 on being evaluated in our office today if there is not much we can do to help her Patient is educated on conservative pain management measures, such as rest, ice, elevation, and [id number] pain medication as needed to help with her pain while awaiting Podiatry appointment Patient will follow-up as needed with any acute concerns Orders: Orders XR foot RT min 3V Today S92.351A - Displaced fracture of fifth metatarsal bone, right foot, initial encounter for closed fracture Referrals Podiatry Referral M79.674 - Pain in right toe(s) Coding Level of Care Code New Pt Level 3 (90091) Diagnoses Pain of right great toe M79.674 Arthritis of first metatarsophalangeal (MTP) joint of right foot M19.071
[2024-04-21 14:50] VITALS: BMI 23.8
== END 2024-04-21 15:09 | disposition home or self-care (01) ==
PROVIDERS: PCP Internal Medicine
DX: M79.674 Pain in right toe(s) (principal); M19.071 Primary osteoarthritis, right ankle and foot
CPT/HCPCS: 99203

== ENCOUNTER 2025-02-22 11:46 | Outpatient (REF) | payer MEDICAID, SELFPAY ==
--- OUTSIDE RECORDS SUMMARY | 2025-02-22 12:59 | XMS_ITS | Clinical Summary ---
Author Organization [facility] Address [address] [place] [address] Care Team Providers Care Associate Director Of Nursing Name Role Phone Unavailable Primary Care Provider Unavailabl e Social History Tobacco Use Types Packs/Day Years Used Date Smoking Tobacco: Never Assessed Comments Unknown Sex and Gender Information Value Date Recorded Sex Assigned at Not on file Legal Sex Female 2:33 PM EST Gender Identity Not on file Sexual Orientation Not on file Plan of Treatment Health Maintenance Due Date Last Done Comments DTaP,Tdap,and Td Vaccines (1 - Tdap) 2009 Hepatitis B Vaccines (1 of 3 - 19+ 3-dose series) 2009 Cervical Cancer Screening: P ap Smear 11/23/2011 COVID-19 Vaccine (1 - 2023-2 5 season) 2024 Depression Screening 08/04/2024 Influenza Vaccine (#1) 2025 HIB Vaccines Aged Out No longer eligi ble based on patient's age to complete this topic HPV Vaccines Aged Out No longer eligi ble based on patient's age to complete this topic Hepatitis A Vaccines Aged Out No long er eligible based on patient's age to complete this topic IPV Vaccines Aged Out No longer eligi ble based on patient's age to complete this topic MMR Vaccines Aged Out No longer eligi ble based on patient's age to complete this topic Meningococcal ACWY Vaccine Aged Out N o longer eligible based on patient's age to complete this topic Meningococcal B Vaccine Aged Out No l onger eligible based on patient's age to complete this topic Pneumococcal Vaccine: Pediat rics (0 to 5 Years) and At-Risk Patients (6 to 49 Years) Aged Out No longer eligible b ased on patient's age to complete this topic RSV Immunization Patients Un gerhard 20 months Aged Out No longer eligible b ased on patient's age to complete this topic Varicella Vaccines Aged Out No longer eligible based on patient's age to complete this topic
[2025-02-25 05:38] LABS: TS Negative Control Passed; TS Panel A 0; TS Panel B 0; TS Positive Control Passed; TSpotTB Negative (Negative)
== END 2025-02-22 11:47 | disposition home or self-care (01) ==
LOC: HO.HHCL 11:46
PROVIDERS: PCP Internal Medicine; Visit Provider Internal Medicine
DX: Z11.1 Encounter for screening for respiratory tuberculosis (principal)
CPT/HCPCS: 36415; 86481

== ENCOUNTER 2025-05-19 16:13 | Emergency (ER) | payer MEDICAID, SELFPAY ==
--- NOTE | ~2025-05-19 | CT_ITS ---
CLINICAL HISTORY: posterior mastoid tenderness. ear discharge CT temporal bone without contrast Comparison: None provided Findings: Bilateral external auditory canals are within normal limits. Minimal thickening of the left tympanic membrane. Middle ear ossicles are intact. Unremarkable cochlea and semicircular canals. Seventh nerve courses are unremarkable. Unremarkable temporomandibular joints. Orbits normal. Paranasal sinuses and mastoid air cells clear. No foreign bodies. IMPRESSION: Minimal thickening of the left tympanic membrane. No other abnormalities. This document has been electronically signed by: Eloy Michel MD on 05/19/2025 18:07:36
[2025-05-19 16:52] VITALS: BP 122/56; PULSE 57; RESP 16; TEMP 36.8; O2SAT 100; BMI 23.9
--- NOTE | 2025-05-19 17:00 | ED.GENADULT ---
HPI - General Adult General Chief complaint: Ear Problems Stated complaint: left ear pain Time Seen by Provider: 05/19/25 18:26 Source: patient Mode of arrival: ambulatory Limitations: no limitations History of Present Illness ED Provider: Leroy Tuttle HPI narrative: 34 yold female with recurrent left ear infections presents to the ED left ear pain and draiange with decreased hearing. Patient states this is her third ear infection in 3 months and will be third round of antibiotics. patient denies any other complaints or any trauma. Related Data Home Medications ?Medication ?Instructions ?Recorded ?Confirmed albuterol sulfate 90 mcg/actuation 2 puff inhalation Q6H PRN 10/30/20 09/02/23 aerosol inhaler (ProAir HFA) quetiapine 50 mg tablet (Seroquel) 50 mg PO DAILY 11/09/20 09/02/23 fluticasone 500 mcg-salmeterol 50 1 ea inhalation 09/04/22 09/02/23 mcg/dose blistr powdr for inhalation (Advair Diskus) clonidine HCl 0.1 mg tablet 0.1 mg PO BEDTIME 09/02/23 09/02/23 lamotrigine 100 mg tablet 100 mg PO QAM 04/21/24 Previous Rx's ?Medication ?Instructions ?Recorded ipratropium 0.5 mg-albuterol 3 mg 3 ml inhalation Q4-6H PRN wheezing 07/02/21 (2.5 mg base)/3 mL nebulization 30 days #180 mL soln naproxen 500 mg tablet 500 mg PO BID PRN pain #14 tabs 04/08/24 prednisone 20 mg tablet 40 mg (2 x 20 mg) PO DAILY 3 days 04/21/24 #6 tabs amoxicillin 875 mg-potassium 1 tab PO Q12H 10 days #20 tabs 05/19/25 clavulanate 125 mg tablet ketorolac 10 mg tablet 10 mg PO Q6H PRN pain #20 tabs 05/19/25 Allergies Allergy/AdvReac Type Severity Reaction Status Date / Time peanut Allergy Anaphylaxis Verified 05/19/25 16:55 Review of Systems Review of Systems: left ear pain Yes all other systems are reviewed and are negative PMFSH Past Medical History Medical History Infertility management Asthma Surgical History Hx of section Social History Social History (Updated 04/21/24 @ 14:58 by RYAN Hung) Alcohol intake: current Alcohol intake frequency: holidays/special occasions only Patient Tobacco Use Status: Current someday Tobacco user Tobacco use type: Cigarette Cigarettes Per Day: 5 Substance Use Type: Marijuana Advance Directives: No Advance Directives Information Provided: No Do you have a plan to hurt others: No Plan Patient : No Current occupational status: employed Current occupation: [employer] Gender identity: Female Physical Exam ED Vital Signs: Vital Signs - 24 hr 05/19/25 16:52 Temperature 98.2 F Pulse Rate 57 Respiratory Rate 16 Blood Pressure 122/56 L Pulse Oximetry 100 Oxygen Delivery Method Room Air BMI result Body Mass Index 23.9 Const General: cooperative, healthy appearing, comfortable, no acute distress, well developed, alert and awake Orientation/consciousness: patient oriented x3 HENMT Head: Yes normal to inspection, Yes No palpable skull fracture present, Yes normocephalic and Yes atraumatic Ears: hearing grossly normal bilaterally, external ears normal, TM normal on the right, EAC's normal, mastoid abnormal (left mastoid tenderness without any redness or swelling) and TM abnormal bulging and erythematous General nose exam: Normal external nose present and Normal nares present Face and sinus: Yes normal facial exam, Yes sinuses nontender and Yes face symmetric Mouth: Normal oral and palatal mucosa present, lip normal and tongue normal Throat: Yes posterior oropharynx normal, Yes tonsils normal and Yes uvula midline Eyes General: appearance normal, both eyes and all related structures Neck Neck: Yes normal visual inspection, Yes full ROM, Yes no lymphadenopathy, Yes no meningeal signs, Yes trachea midline, Yes supple, No anterior neck swelling and No tender Chest Chest palpation & inspection: normal inspection of the chest and normal palpation of entire chest wall Resp Effort & Inspection: normal respiratory effort and able to speak in complete sentences Auscultation: clear to auscultation bilaterally Cardio Jugular venous distension: no JVD Heart sounds: S1 normal heart sound present and S2 normal heart sound present GI Inspection: Yes normal to inspection Palpation (GI): Soft to palpation, not firm, nontender, no guarding and not rigid General: Yes no CVA tenderness Back/Spine/Pelvis Back: no CVA tenderness and No back tenderness Skin General skin exam: no rashes or lesions noted, elasticity normal and turgor normal Neuro General: patient oriented x3, gait normal, tone normal, Normal light touch and pain sensation, no meningeal signs, no focal motor deficits and CN's II-XI intact bilaterally Extrem General: Yes normal to inspection, Yes full ROM and Yes capillary refill normal Psych Appearance: grossly normal, well kempt and not disheveled Course Course Course Narrative: RME: 34-year-old female presents to ED for recurrent left ear infection. Patient has had 2 rounds of antibiotics for left ear pain and left ear drainage discharge. Patient denies any recent swimming. positive for left ear discharge and mastoid tenderness without swelling or erythema of mastoid. mastoid CT scan ordered Medications Administered Discontinued Medications Generic Name Dose Route Start Last Admin Trade Name Freq PRN Reason Stop Dose Admin Ketorolac Tromethamine 30 mg 05/19/25 18:38 05/19/25 18:52 Ketorolac Tromethamine 30 Mg/Ml Vial IM 05/19/25 18:39 30 mg ONCE ONE Administration Medical Decision Making Medical Decision Making MDM Narrative: 34-year-old female presents to ED for left ear pain. Patient has had recurrent left ear infection for the past 2 months has been on 2 courses of antibiotics. Patient states also decrease in hearing with the ear pain. Exam positive for left mastoid tenderness on palpation without any erythema or swelling. Tympanic membrane bulging. Sent for ear CT scan which came back negative for mastoiditis. Patient has poor dental decay which which will be taking cough in [place] for her scheduled surgery with denies any dental pain. Toradol ordered. Patient to be discharged with antibiotics. Patient explained worrisome signs informed return to the ED immediately. not suspecting brain bleed, temporal arteritis, osteomyelitis, abscess, federico angina, retropharygneal abscess, trismus, peritonsillar abscess, meningitis, or any other life threatening etiology. Differential Diagnosis Differential Diagnoses: The differential diagnosis associated with the presentation includes (Otitis media, otitis externa, mastoiditis) Admission/Observation Consideration of admission/observation: Escalation of care including admission/observation considered Independent Interpretation I performed an independent interpretation of an: CT Scan Radiology Impression Discussion of test interpretation with radiology: I have reviewed the radiologist's reading. Independent Historian Clinical information obtained from an independent historian. History obtained from or confirmed by: Other (Patient is) Prescription Management I considered prescription management with: Pain Medication and Antibiotic Discharge Plan Discharge Clinical Impression: Otitis media Patient Disposition: Home, Self-Care Instructions: Ear Infection (ED) Additional Instructions: Recommend follow up with primary care provider. Return to the ED immediately for worsening ear pain, drainage discharge, fever, chills, redness swelling behind the ear, facial swelling, neck swelling, chest pain, shortness of breath, or any other concerning symptoms. Do not take any other NSAIDs such as Motrin, Aleve, or aspirin while taking ketorolac Patient: Eleazar Contreras MR#: [id number] : 1990 Acct:[id number] Age/Sex: 34 / F ADM Date: 05/19/25 Loc: HO.ED Attending Dr: Ordering Physician: Leroy Tuttle Date of Service: 05/19/25 Procedure(s): CT mastoid Accession Number(s): [id number] cc: Leroy Tuttle; Dafne Correa MD~ Report Number: [id number]: Total DLP = 254.00 mGy-cm Reason for Exam: posterior mastoid tenderness. ear discharge CLINICAL HISTORY: posterior mastoid tenderness. ear discharge CT temporal bone without contrast Comparison: None provided Findings: Bilateral external auditory canals are within normal limits. Minimal thickening of the left tympanic membrane. Middle ear ossicles are intact. Unremarkable cochlea and semicircular canals. Seventh nerve courses are unremarkable. Unremarkable temporomandibular joints. Orbits normal. Paranasal sinuses and mastoid air cells clear. No foreign bodies. IMPRESSION: Minimal thickening of the left tympanic membrane. No other abnormalities. This document has been electronically signed by: Eloy Michel MD on 05/19/2025 18:07:36 Prescriptions: New amoxicillin-pot clavulanate 875-125 mg tablet 1 tab PO Q12H 10 Days Qty: 20 0RF ketorolac 10 mg tablet 10 mg PO Q6H PRN (Reason: pain) Qty: 20 0RF Rx Instructions: received 30gm IM toradol in the urine No Action prednisone 20 mg tablet 40 mg PO DAILY 3 Days Qty: 6 0RF naproxen 500 mg tablet 500 mg PO BID PRN (Reason: pain) Qty: 14 0RF Rx Instructions: Take with food quetiapine [Seroquel] 50 mg tablet 50 mg PO DAILY albuterol sulfate [ProAir HFA] 90 mcg/actuation HFA aerosol inhaler 2 puff inhalation Q6H PRN ipratropium-albuterol 0.5 mg-3 mg(2.5 mg base)/3 mL solution for nebulization 3 ml inhalation Q4-6H PRN (Reason: wheezing) 30 Days Qty: 180 6RF fluticasone propion-salmeterol [Advair Diskus] 500-50 mcg/dose blister with device 1 ea inhalation clonidine HCl 0.1 mg tablet 0.1 mg PO BEDTIME lamotrigine 100 mg tablet 100 mg PO QAM Referrals: [facility] [Provider Group, Ear, Nose, Throat] - 2 days Referral Note: Recurrent ear infection Clinical Impression: Otitis media Stand Alone Forms: Work/School Release Interventions: ED Discharge Assessment Last Done: 05/19/25 19:01 Discharge Date/Time: 05/19/25 19:02 Print Language: Georgian
[2025-05-19 19:01] VITALS: BP 125/69; PULSE 70; RESP 16; TEMP 36.8; O2SAT 98
--- OUTSIDE RECORDS SUMMARY | 2025-05-19 19:56 | XMS_ITS | Clinical Summary ---
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
--- OUTSIDE RECORDS SUMMARY | 2025-05-19 19:56 | XMS_ITS | Clinical Summary ---
Author Organization [employer] Address [address] [facility] [address] [place] [address] Care Team Providers Care Loom Tuner Name Role Phone Dafne Correa MD Primary Care Provide r Allergies Active Allergy Reactions Criticality Noted Date Comments Peanut (Diagnostic) Hives High 04/07/2019 Medications Respiratory Therapy Supplies (Nebulizer Mask Adult) miscIndications:M oderate persistent asthma without complication 1 each every 4 (four) hours if needed (shortness of breath/ wheezing). 1 each 3 Active montelukast (Singulair) 10 MG tabletIndications :Mild persistent asthma without complication TAKE 1 TABLET BY MOUTH AT BEDTIME 90 tablet 1 3 Active albuterol (Ventolin HFA) 108 (90 Base) MCG/ACT inhalerIndication s:Mild persistent asthma without complication INHALE 2 PUFFS EVERY 4 TO 6 HOURS NEEDED 18 g 1 3 Active Advair Diskus 500-50 MCG/ACT aerosol powderIndications :Moderate persistent asthma without complication INHALE 1 PUFF BY MOUTH TWICE DAILY. RINSE MOUTH AFTER USING. 60 each 3 3 Active QUEtiapine (SEROquel) 50 MG tabletIndications :Major depressive disorder in partial remission, unspecified whether recurrent (CMS/HCC) TAKE 1/2 TABLET BY MOUTH EVERY MORNING AND 2 TABLETS BY MOUTH EVERY DAY AT BEDTIME 75 tablet 1 4 Active cetirizine (ZyrTEC) 10 MG tablet Take 1 tablet (10 mg) by mouth Once per day. 30 tablet 11 4 Active Active Problems Problem Noted Date Diagnosed Date Acute otitis externa of left ear 02/21/2025 Assessment & Plan (02/21/2025 10:01 AM EDT): Advised to apply heat to affected ear, teabags or heat compresses. Take Tylenol as needed for pain Use Cortisporin eardrops to affected ear x 1 week Advised against uretheral of water with his left ear. Bipolar disorder 11/07/2023 Moderate persistent asthma 11/07/2023 Pain of right great toe 11/07/2023 Intermittent asthma 12/09/2022 Resolved Problems Problem Noted Date Diagnosed Date Resolved Date Otalgia of both ears 08/05/2024 025 Assessment & Plan (08/05/2024 1:41 PM EST): 1 day of moderate to severe ear pain bilateral, worse on left. Suspect infection however no obvious otitis. Will treat presumptively for dental infection given severity of pain. Monitory for symptoms viral URI or shingles. Follow up if no improvement or worsening symptoms. Work note given. Encounters Date Type Department Care Team Description 05/19/2025 Orders Only [facility] External Provider, [facility] 03/17/2025 Telephone [facility] [address] [place] [phone] Meche Ann [place] CHARTPREP 03/11/2025 Patient Outreach [facility] [address] [place] [address] Dafne Correa MD Pre-visit Planning (SDOH negative. Tobacco screening positive. ) 02/22/2025 Telephone [facility] [address] [place] [address] Jazzy Franco RN Lab Orders 02/21/2025 10:00 AM EDT Office Visit [facility] [address] [place], [place] [phone] Nya Heath MD Other infective acute otitis externa of left ear (Primary Dx) 02/21/2025 Travel from Last 3 Months Immunizations Immunization Administration Dates Next Due HPV, Quadrivalent 05/18/2015 Influenza injectable quadrivalent preservative f ree 06/28/2020 Tdap 04/12/2016 Social History Tobacco Use Types Packs/Day Years Used Date Smoking Tobacco: Every Day Cigarettes Passive Smoke Exposure: Current Smokeless Tobacco: Never Tobacco Cessation:Ready to Q uit: Not Asked; Counseling Given: Not Answered Housing Stability Answer Date Recorded What is your housing situation today? I have pérez jaimes 03/11/[address] you li ve. Do you have problems with any of the following? None of the above 03/11/2025 Food Insecurity Answer Date Recorded Within the past 12 months, y ou worried that your food would run out before you got money to buy more: Never True 03/11/2025 Within the past 12 months,th e food you bought just didn't last and you didn't have enough money to get more: Never True 03/2025 Transportation Answer Date Recorded In the past 12 months, has l ack of transportation kept you from medical appts, meetings, work or from getting things needed for daily living? No 03/11/2025 Utilities Answer Date Recorded In the past 12 months, has t he electric, gas, oil or water company threatened to shut off services in your home? No 03/11/2025 Internet Access Answer Date Recorded Internet Access Q1 Yes 03/11/2025 Internet Access Q2 Not on file 03/11/2025 Comments No Sex and Gender Information Value Date Recorded Sex Assigned at Female 06/03/2022 10:15 AM EDT Legal Sex Female 10:15 AM EDT Gender Identity Female 06/03/2022 10:15 AM EDT Sexual Orientation Choose not to disclose 2022 11:48 AM EST Sexual Orientation Don't know 07/02/2023 11 :48 AM EST Last Filed Vital Signs Vital Sign Reading Time Taken Comments Blood Pressure 122/73 02/21/2025 9:29 AM EDT Pulse 79 02/21/2025 9:29 AM EDT Temperature 36.7 C (98.1 F) 02/21/2025 9:29 AM EDT Respiratory Rate 16 02/21/2025 9:29 AM EDT Oxygen Saturation 96% 02/21/2025 9:29 AM EDT Inhaled Oxygen Concentration - - Weight 57.9 kg (127 lb 9.6 oz) 02/21/2025 9:29 A M EDT Height 162.6 cm (5' 4.03 ) 02/21/2025 9:29 AM ED T Body Mass Index 21.88 02/21/2025 9:29 AM EDT Plan of Treatment Upcoming Encounters Date Type Department Care Team (Late st Contact Info) Description 08/25/2025 2:30 PM EST Office Visit [facility] [address] [place] [address] Taisha Maagna, OD [address] [place] [address] Health Maintenance Due Date Last Done Comments Depression Screening 1990 Disability Screening 1990 Alcohol/Substance Use Screening 2002 Family Planning (PISQ) 2005 Hepatitis B Vaccines (1 of 3 - 19+ 3-dose series) 2009 Pneumococcal Vaccine: Pediatrics (0 to 5 Years) and At-Risk Patients (6 to 49) Years (1 of 2 - PCV) 2009 HPV Vaccines (2 - 3-dose series) 06/15/2015 05/18/2015 COVID-19 Vaccine (1 - season) 2025 Influenza Vaccine (#1) 2025 06/28/2020 Lipid Panel 06/28/2025 06/28/2020 Tobacco Screening 02/21/2026 02/21/2025 SDOH Screening 03/11/2026 03/11/2025 DTaP/Tdap/Td Vaccines (2 - Td or Tdap) 04/12/2026 04/12/2016 Cervical Cancer Screening 09/02/2028 HPV/Cotest 09/02/2028 09/02/2023 Pap Smear 09/02/2028 09/02/2023 Zoster Vaccines (1 of 2) 2040 RSV Patients and Patients Aged 60 years or older (1 - 1-dose 75+ series) 2065 HIV Screening Completed 09/02/2023, 0208/2022, 10/30/2021, Additional history exists Hepatitis C Screening Completed 09/02/2023 , 09/04/2022, 10/30/2021 HIB Vaccines Aged Out No longer eligi [...] patient's age to complete this topic Meningococcal Vaccine Aged Out No digna patt eligible based on patient's age to complete this topic RSV under 20 months Aged Out No longe r eligible based on patient's age to complete this topic Rotavirus Vaccines Aged Out No longer eligible based on patient's age to complete this topic Procedures Procedure Name Priority Date/Time Associated Diagnosis Comments CT TEMPORAL BONE WO CONTRAST Routine 05/19/2025 6:07 PM EDT T-SPOT(R).TB Routine 02/22/2025 12:02 PM EDT HEPATITIS C ANTIBODY Routine 09/02/2023 12:28 PM EST HIV 1/2 ANTIGEN/ANTIBODY, FOURTH GENERATION W/RFL Routine 09/02/2023 12:28 PM EST HPV MRNA E6/E7 REFLEX TO HPV 16, 18/45 Routine 09/02/2023 12:11 PM EST PAP SMEAR Routine 09/02/2023 12:11 PM EST LIPID PANEL, STANDARD Routine 06/28/2020 11:46 AM EST from Last 3 Months or Most Recently Relevant to Health Maintenance Results * CT TEMPORAL BONE WO CONTRAST (05/19/2025 6:07 PM EDT) Anatomical Region Laterality Modality Body, Abdomen Computed Tomogra phy 05/19/2025 6:07 PM EDT Narrative 05/19/2025 6:09 PM EDT [address] [address] [address] Scan Report Signed Patient: Eleazar Contreras MR#: [id number] : 1990 Acct:[id number] Age/Sex: 34 / F ADM Date: 05/19/25 Loc: HO.ED Attending Dr: Ordering Physician: Ming Tuttle Date of Service: 05/19/25 Procedure(s): CT mastoid Accession Number(s): [id number] cc: Ming Tuttle; Dafne Correa MD Report Number: [id number]: Total DLP = 254.00 mGy-cm Reason for Exam: posterior mastoid tenderness. ear discharge CLINICAL HISTORY: posterior mastoid tenderness. ear discharge CT temporal bone without contrast Comparison: None provided Findings: Bilateral external auditory canals are within normal limits. Minimal thickening of the left tympanic membrane. Middle ear ossicles are intact. Unremarkable cochlea and semicircular canals. Seventh nerve courses are unremarkable. Unremarkable temporomandibular joints. Orbits normal. Paranasal sinuses and mastoid air cells clear. No foreign bodies. IMPRESSION: Minimal thickening of the left tympanic membrane. No other abnormalities. This document has been electronically signed by: Eloy Michel MD on 05/19/2025 18:07:36 Dictated By: Eloy Michel MD Signed By: <Electronically signed by Eloy Michel MD in OV> 05/19/251807 DD/ 06 TD/TT: 05/19/251806 Middleware Engineer: Procedure Note Donotuseinterpreter, Image - 05/19/[address] [place] [address] [address] Scan Report Signed Patient: Eleazar Contreras#: [id number] : 1990Acct:[id number] Age/Sex: 34 / FADM Date: 05/19/25 Loc: HO.ED Attending Dr: Ordering Physician: Ming Tuttle Date of Service: 05/19/25 Procedure(s): CT mastoid Accession Number(s): [id number] cc: Ming Tuttle; Dafne Correa MD Report Number: [id number]: Total DLP = 254.00 mGy-cm Reason for Exam: posterior mastoid tenderness. ear discharge CLINICAL HISTORY: posterior mastoid tenderness. ear discharge CT temporal bone without contrast Comparison: None provided Findings: Bilateral external auditory canals are within normal limits. Minimal thickening of the left tympanic membrane. Middle ear ossicles are intact. Unremarkable cochlea and semicircular canals. Seventh nerve courses are unremarkable. Unremarkable temporomandibular joints. Orbits normal. Paranasal sinuses and mastoid air cells clear. No foreign bodies. IMPRESSION: Minimal thickening of the left tympanic membrane. No other abnormalities. This document has been electronically signed by: Eloy Michel MD on 05/19/2025 18:07:36 Dictated By: Eloy Michel MD Signed By: <Electronically signed by Eloy Michel MD in OV> 05/19/251807 DD/ 06 TD/TT: 05/19/251806 Middleware Engineer: [facility] External Provider IMG CT PROCEDURES Final Result * T-SPOT??.TB (02/22/2025 12:02 PM EDT) T Spot TB Negative Negative [facility] Comment:A negative test resu lt does not exclude the possibilityof exposure to or infection with Mycobacteriumtuberculosis (M. tuberculosis). Patients with recentexposure to TB infected individuals exhibiting anegative T-SPOT.TB result should be considered forretesting within 6 weeks or if other relevant clinicalsymptoms indicate. Results from T-SPOT.TB testing mustbe used in conjunction with each individual'sepidemiological history, current medical status,and results of other diagnostic evaluations.The T-SPOT.TB test is qualitative and results arereported as positive, borderline, or negative, giventhat the test controls perform as expected. In linewith the Centers for Disease Control and Prevention's2010 recommendation to report quantitative measurementsalongside the qualitative result, the laboratoryprovides spot counts for informational purposes only.The T-SPOT.TB test should not be interpreted as aquantitative test. TS PANEL A 0 [facility] TS PANEL B 0 [facility] Negative Control Passed [facility] Positive Control Passed [facility] Comment:For additional infor césar, please refer tohttp://education.Crave.com/faq/UAA950(This link is being provided for informational/educational purposes only.)THIS TEST WAS PERFORMED AT:[id number] [place] [address]ESLUAFGLAVELLE ELIZABETH MD,PHD 02/22/2025 12:0 2 PM EDT 02/22/2025 1:25 PM EDT us Dafne Brennan MD LAB BLOOD ORDERABLES Final Result Performing Organization Address [facility]/ZIP Co de Phone Number [facility] [address] [place] [phone] * Hepatitis C Ab (09/02/2023 12:28 PM EST) Hepatitis C Antibody Nonreactive Nonreactive [facility] Comment:Antibodies to HCV no t detected; does not exclude early acuteHCV infection. 09/02/2023 12:2 8 PM EST 09/02/2023 1:24 PM EST us Generic External Data Provider LAB BLOOD ORDERAB LES Final Result Performing Organization Address [facility] Co de Phone Number [facility] [address] [place] [phone] * HIV-1/2 Antigen and Antibodies, Fourth Generation, with Reflexes (09/02/2023 12:28 PM EST) HIV AB/AG Nonreactive Nonreactive [facility] Comment:HIV-1 p24 Ag and/or HIV-1/HIV-2 Ab not detected.A test result that is nonreactive does not exclude thepossibility of exposure to or infection with HIV-1 and/orHIV-2. Nonreactive results in this assay for individualswith prior exposure to HIV-1 and/or HIV-2 may be due toantigen and antibody levels that are below the limit ofdetection of this assay.The Swidjit HIV Ag/Ab Combo assay result andsupplemental assay results should be interpreted inconjunction with the patient's clinical presentation,history and other laboratory results. If the results areinconsistent with clinical evidence, additional testing issuggested to confirm the result. 09/02/2023 12:2 8 PM EST 09/02/2023 1:24 PM EST Generic External Data Provider LAB BLOOD ORDERAB LES Final Result Performing Organization Address [facility] Co de Phone Number [facility] [address] [place] [phone] * HPV mRNA E6/E7 w/Reflex to HPV Genotypes 16, 18/45 (09/02/2023 12:11 PM EST) HPV nRNA E6/E7 Not Detected Not Detected [facility] Comment:Methodology: Transcr iption-Mediated AmplificationThis assay detects E6/E7 viral messenger RNA (mRNA) from 14high-risk HPV types (16,18,31,33,35,39,45,51,52,56,58,59,66,68).Cervical sources are required for HPV testing.If a vaginal source from a patient who has had atotal hysterectomy with removal of cervix wassubmitted, please contact the testing laboratoryfor alternative testing options.For additional information, please refer tohttp://education.Crave.com/faq/SSJ761m5(This link if provided for information/educational purposes only.)THIS TEST WAS PERFORMED AT:[facility] [place] [id number] FUNK MD HPV mRNA E6/E7 [facility] HPV 16 RNA [facility] HPV 18/45 RNA [facility] 09/02/2023 12:1 1 PM EST 09/03/2023 9:45 AM EST Generic External Data Provider LAB CYTOLOGY ORDE RABLES Final Result Performing Organization Address [facility]/ZIP Co de Phone Number [facility] [address] [place] [phone] * Pap Smear (09/02/2023 12:11 PM EST) 09/02/2023 12:1 1 PM EST 09/03/2023 9:45 AM EST [facility] - 09/17/2023 6:54 AM EST ----- ------- Name: Eleazar Contreras Age/Sex: 32/F : 1990 Unit#: [id number] Attend Dr: Ayana Lim CNM Re09/02/23 Status: DEP [facility] Disch[facility] ----- ------- SPEC : [id number] RECD: 09/03/23-45 STATUS: BRIDGETTE VARNER NUM: [id number] HAYLEE: 09/02/23-1211 [facility] DR: Ayana Lim ENTERED: 09/04/23-1036 SP TYPE: Pap Smr OTHR DR: [facility] ORDERED: Pap Smear Interpretation Satisfactory for evaluation. Negative for intraepithelial lesion or malignancy. HPV mRNA E6/E7: NOT DETECTED This assay detects E6/E7 viral messenger RNA (mRNA) from 14 high-risk HPV types (16, 18, 31, 33, 35, 39, 45, 51, 52, 56, 58, 59, 66, 68) HPV testing performed by [facility], [place], [place]. See reference laboratory portion of the EMR for entire report. Clinical Information LMP: 08/15/2023 Previous PAP test: Unknown date, WNL Material Received ThinPrep-Cervical Copies To: [facility] [address] [place] [address] Ayana Lim [address] [place] [address] ----- ------- Signed (signature on file) BEN Sher (ASCP) 09/17/23 0654 ----- ------- END OF REPORT us Generic External Data Provider LAB CYTOLOGY CHIDI DEMPSEY Final Result [facility] [address] [place] [phone] [phone] * (ABNORMAL) LIPID PANEL, STANDARD (06/28/2020 11:46 AM EST) LDL Cholesterol 77 mg/dL (calc) [facility] Comment: Reference range: <100 Desirable range <100 mg/dL for primary prevention; <70 mg/dL for patients with CHD or diabetic patients with > or = 2 CHD risk factors. LDL-C is now calculated using the Monica calculation, which is a validated novel method providing better accuracy than the Friedewald equation in the estimation of LDL-C. Stevo SS et al. ERASTO. 2013;310(19): 0053-9628 (http://education.SaludFÁCIL.Silentium/faq/NDQ748) Chol/HDLC Ratio 3.1 <5.0 (calc) [facility] Chol/HDLC Ratio 3.1 <5.0 (calc) [facility] HDL Cholesterol 48(L) > OR = 50 mg/dL [facility] Non-HDL Cholesterol 99 <130 mg/dL (calc) [facility] Comment: For patients with diabetes plus 1 major ASCVD risk factor, treating to a non-HDL-C goal of <100 mg/dL (LDL-C of <70 mg/dL) is considered a therapeutic option. LDL Cholesterol 77 mg/dL (calc) [facility] Comment: Reference range: <100 Desirable range <100 mg/dL for primary prevention; <70 mg/dL for patients with CHD or diabetic patients with > or = 2 CHD risk factors. LDL-C is now calculated using the Stevo-Heart calculation, which is a validated novel method providing better accuracy than the Friedewald equation in the estimation of LDL-C. Stevo SS et al. ERASTO. 2013;310(19): 5522-7401 (http://education.SaludFÁCIL.Silentium/faq/SAE450) Chol/HDLC Ratio 3.1 <5.0 (calc) [facility] Cholesterol, Total 147 <200 mg/dL [facility] Triglycerides 137 <150 mg/dL [facility] Cholesterol, Total 147 <200 mg/dL [facility] HDL Cholesterol 48(L) > OR = 50 mg/dL [facility] LDL Cholesterol 77 mg/dL (calc) [facility] Comment: Reference range: <100 Desirable range <100 mg/dL for primary prevention; <70 mg/dL for patients with CHD or diabetic patients with > or = 2 CHD risk factors. LDL-C is now calculated using the Stevo-Heart calculation, which is a validated novel method providing better accuracy than the Friedewald equation in the estimation of LDL-C. Stevo SS et al. ERASTO. 2013;310(19): 7025-4500 (http://education.SaludFÁCIL.Silentium/faq/FTQ883) LDL Cholesterol 77 mg/dL (calc) [facility] Comment: Reference range: <100 Desirable range <100 mg/dL for primary prevention; <70 mg/dL for patients with CHD or diabetic patients with > or = 2 CHD risk factors. LDL-C is now calculated using the Stevo-Heart calculation, which is a validated novel method providing better accuracy than the Friedewald equation in the estimation of LDL-C. Stevo SS et al. ERASTO. 2013;310(19): 7831-7066 (http://education.SaludFÁCIL.Silentium/faq/MUG892) Cholesterol, Total 147 <200 mg/dL [facility] Triglycerides 137 <150 mg/dL [facility] HDL Cholesterol 48(L) > OR = 50 mg/dL [facility] Cholesterol, Total 147 <200 mg/dL [facility] Non-HDL Cholesterol 99 <130 mg/dL (calc) [facility] Comment: For patients with diabetes plus 1 major ASCVD risk factor, treating to a non-HDL-C goal of <100 mg/dL (LDL-C of <70 mg/dL) is considered a therapeutic option. Triglycerides 137 <150 mg/dL [facility] Triglycerides 137 <150 mg/dL [facility] Non-HDL Cholesterol 99 <130 mg/dL (calc) [facility] Comment: For patients with diabetes plus 1 major ASCVD risk factor, treating to a non-HDL-C goal of <100 mg/dL (LDL-C of <70 mg/dL) is considered a therapeutic option. HDL Cholesterol 48(L) > OR = 50 mg/dL [facility] Chol/HDLC Ratio 3.1 <5.0 (calc) [facility] Chol/HDLC Ratio 3.1 <5.0 (calc) [facility] Triglycerides 137 <150 mg/dL [facility] LDL Cholesterol 77 mg/dL (calc) [facility] Comment: Reference range: <100 Desirable range <100 mg/dL for primary prevention; <70 mg/dL for patients with CHD or diabetic patients with > or = 2 CHD risk factors. LDL-C is now calculated using the Stevo-Heart calculation, which is a validated novel method providing better accuracy than the Friedewald equation in the estimation of LDL-C. Stevo SS et al. ERASTO. 2013;310(19): 5947-4193 (http://education.SaludFÁCIL.Silentium/faq/JJP390) Non-HDL Cholesterol 99 <130 mg/dL (calc) [facility] Comment: For patients with diabetes plus 1 major ASCVD risk factor, treating to a non-HDL-C goal of <100 mg/dL (LDL-C of <70 mg/dL) is considered a therapeutic option. Non-HDL Cholesterol 99 <130 mg/dL (calc) [facility] Comment: For patients with diabetes plus 1 major ASCVD risk factor, treating to a non-HDL-C goal of <100 mg/dL (LDL-C of <70 mg/dL) is considered a therapeutic option. Cholesterol, Total 147 <200 mg/dL [facility] HDL Cholesterol 48(L) > OR = 50 mg/dL [facility] 06/28/2020 11:4 6 AM EST Dafne Brennan MD LAB BLOOD ORDERABLES Final Result [facility] [address] from Last 3 Months or Most Recently Relevant to Health Maintenance Insurance [employer] Care Teams Loom Tuner Relationship Specialty Start Date End Date Dafne Correa MD [address] [place] [phone] PCP - General Family Medicine 05/18/19
--- OUTSIDE RECORDS SUMMARY | 2025-05-19 19:56 | XMS_ITS | Encounter Summary ---
Author Organization [employer] Address [address] [facility] [address] 7[address] [place] [address] Care Team Providers Care Technical Delivery Manager Name Role Phone Dafne Correa MD Primary Care Provide r Encounter Details Date Type Department Care Team ([facility] st Contact Info) Description 05/19/2025 Orders Only [facility] External Provider, [facility] Social History Tobacco Use Types Packs/Day Years Used Date Smoking Tobacco: Every Day Cigarettes Passive Smoke Exposure: Current Smokeless Tobacco: Never Housing Stability Answer Date Recorded What is [...] Don't know 07/02/2023 11 :48 AM EST documented as of this encounter Plan of Treatment Upcoming Encounters Date Type Department Care Team (Late st Contact Info) Description 08/25/2025 2:30 PM EST Office Visit [facility] [address] [place] [address] Tarka, Taisha, OD [address] [place] [address] documented as of this encounter Procedures Procedure Name Priority Date/Time Associated Diagnosis Comments CT TEMPORAL BONE WO CONTRAST Routine 05/19/2025 6:07 PM EDT documented in this encounter Results * CT TEMPORAL BONE WO CONTRAST (05/19/2025 6:07 PM EDT) Anatomical Region Laterality Modality Body, Abdomen Computed Tomogra phy 05/19/2025 6:07 PM EDT Narrative 05/19/2025 6:09 PM EDT [address] [address] [address] Scan Report Signed Patient: Eleazar Contreras MR#: [id number] : 1990 Acct:[id number] Age/Sex: 34 / F ADM Date: 05/19/25 Loc: .ED Attending Dr: Ordering Physician: Ming Tuttle Date of Service: 05/19/25 Procedure(s): CT mastoid Accession Number(s): [id number] cc: Ming Tuttle; Dafne Correa MD Report Number: [id number]: Total DLP = 254.00 mGy-cm Reason for [...] in OV> 05/19/251807 DD/ 06 TD/TT: 05/19/251806 Graphic Design Manager: Procedure Note Donotuseinterpreter, Image - 05/19/[address] [place] [address] [address] Scan Report Signed Patient: Nancy Contreras#: [id number] : 1990Acct:[id number] Age/Sex: 34 / FADM Date: 05/19/25 Loc: HO.ED Attending Dr: Ordering Physician: Ming Tuttle Date of Service: 05/19/25 Procedure(s): CT mastoid Accession Number(s): [id number] cc: Ming Tuttle; Dafne Correa MD Report Number: [id number]: Total DLP = 254.00 mGy-cm Reason for [...] in OV> 05/19/251807 DD/ 06 TD/TT: 05/19/251806 Graphic Design Manager: [facility] External Provider IMG CT PROCEDURES Final Result documented in this encounter Visit Diagnoses Not on filedocumented in this encounter Care Teams Technical Delivery Manager Relationship Specialty Start Date End Date Dafne Correa MD [address] [place] [address] PCP - General Family Medicine 05/18/19 documented as of this encounter
== END 2025-05-19 19:02 | disposition home or self-care (01) ==
PROVIDERS: Emergency Provider Emergency Medicine; PCP Internal Medicine
DX: H66.92 Otitis media, unspecified, left ear (principal); H92.02 Otalgia, left ear; F17.210 Nicotine dependence, cigarettes, uncomplicated; Z79.899 Other long term (current) drug therapy
CPT/HCPCS: 70481; 96372; 99284; J1885

== ENCOUNTER → 2025-05-19 16:57 | Outpatient (BNV) | payer MEDICAID, SELFPAY | PROVIDERS: Emergency Provider Emergency Medicine; PCP Internal Medicine; Visit Provider Radiology Diagnostic Radiology | DX: H66.92 Otitis media, unspecified, left ear (principal) | CPT/HCPCS: 70481 ==

== ENCOUNTER 2025-06-06 19:32 | Emergency (ER) | payer MEDICAID, SELFPAY ==
[2025-06-06 19:54] VITALS: BP 184/86; PULSE 82; RESP 20; TEMP 36.7; O2SAT 100; BMI 24.7
--- NOTE | 2025-06-06 19:54 | ED.GENADULT ---
HPI - General Adult General Chief complaint: Ear Problems Stated complaint: ear ache started up again, here few weeks ago Time Seen by Provider: 06/06/25 21:42 Source: patient Mode of arrival: ambulatory Limitations: no limitations History of Present Illness ED Provider: HPI narrative: 34-year-old woman presenting with recurrent left ear ache, she is trying to make an appointment with the ENT in also has a appointment coming up with a dentist, no drainage no fevers or chills feels pain and pulling along her left ear denies dental pain. Related Data Home Medications ?Medication ?Instructions ?Recorded ?Confirmed albuterol sulfate 90 mcg/actuation 2 puff inhalation Q6H PRN 10/30/20 09/02/23 aerosol inhaler (ProAir HFA) quetiapine 50 mg tablet (Seroquel) 50 mg PO DAILY 11/09/20 09/02/23 fluticasone 500 mcg-salmeterol 50 1 ea inhalation 09/04/22 09/02/23 mcg/dose blistr powdr for inhalation (Advair Diskus) clonidine HCl 0.1 mg tablet 0.1 mg PO BEDTIME 09/02/23 09/02/23 lamotrigine 100 mg tablet 100 mg PO QAM 04/21/24 Previous Rx's ?Medication ?Instructions ?Recorded ipratropium 0.5 mg-albuterol 3 mg 3 ml inhalation Q4-6H PRN wheezing 07/02/21 (2.5 mg base)/3 mL nebulization 30 days #180 mL soln naproxen 500 mg tablet 500 mg PO BID PRN pain #14 tabs 04/08/24 prednisone 20 mg tablet 40 mg (2 x 20 mg) PO DAILY 3 days 04/21/24 #6 tabs amoxicillin 875 mg-potassium 1 tab PO Q12H 10 days #20 tabs 05/19/25 clavulanate 125 mg tablet ketorolac 10 mg tablet 10 mg PO Q6H PRN pain #20 tabs 05/19/25 chlorhexidine gluconate 0.12 % 15 ml buccal DAILY #473 mL 06/06/25 mouthwash clindamycin HCl 300 mg capsule 300 mg PO TID 7 days #21 caps 06/06/25 (Cleocin HCl) prednisone 20 mg tablet 40 mg (2 x 20 mg) PO DAILY 4 days 06/06/25 #8 tabs Allergies Allergy/AdvReac Type Severity Reaction Status Date / Time peanut Allergy Anaphylaxis Verified 06/06/25 19:55 Review of Systems Constitutional: Constitutional: Reports as per [facility] Past Medical History Medical History Infertility management Asthma Surgical History Hx of section Social History Social History (Updated 04/21/24 @ 14:58 by RYAN Hung) Alcohol intake: current Alcohol intake frequency: holidays/special occasions only Patient Tobacco Use Status: Current someday Tobacco user Tobacco use type: Cigarette Cigarettes Per Day: 5 Smoked in Last 30 Days: Yes Substance Use Type: Marijuana Advance Directives: No Advance Directives Information Provided: Yes Current occupational status: employed Current occupation: [employer] Gender identity: Female Physical Exam ED Exam Exam: Alert and oriented x4 Normal external ear, and both TMs unremarkable, no mastoid tenderness Uvula midline, she has eroded and poor dentition left upper teeth molar and premolars Supple neck Speaking full sentences Vital Signs: Vital Signs - 24 hr 06/06/25 19:54 06/06/25 20:57 Temperature 98.0 F 98.3 F Pulse Rate 82 65 Respiratory Rate 20 16 Blood Pressure 184/86 H 150/72 H Pulse Oximetry 100 99 Oxygen Delivery Method Room Air Room Air BMI result Body Mass Index 24.7 Course Course Course Narrative: Rapid medical examination performed in triage by Mariaelena Louis PA-C: Patient is a 34 year old assigned female at presenting to the emergency department with an earache. Patient states she was here approximately 2 weeks ago and finished her medicine but her pain persists. Detailed physical exam and review of systems are deferred to the college director. Patient placed back in the waiting room pending room availability. Medical Decision Making Medical Decision Making MDM Narrative: 9:56 PM 06/06/2025 (Dr. Jayesh England): No evidence for mastoiditis, otitis media, serous otitis, otitis externa did not feel further imaging such as CT is indicated, very poor dentition I suspect that this is referred pain and that is why she does get response with the antibiotics, she has dental surgery coming up soon and also also trying to see an ENT doc Otherwise well-appearing without any evidence of infectious etiology of the neck Differential Diagnosis Differential Diagnoses: The differential diagnosis associated with the presentation includes (As above) Admission/Observation Consideration of admission/observation: Escalation of care including admission/observation considered Tests considered The following testing was considered but not selected: CT skull Prescription Management I considered prescription management with: Pain Medication and Antibiotic Discharge Plan Discharge Clinical Impression: Left ear pain, Poor dentition Patient Disposition: Home, Self-Care Additional Instructions: I know you are experiencing an ear ache, examination of the ear is quite unremarkable, as I discussed with the you I have a very high clinical suspicion that your symptoms actually secondary to poor dentition and this is a reffered dental pain, continue antibiotics starting tomorrow, you can take Tylenol 975 mg every 6 hours around the clock, and I am going to keep him on steroids for the next few days to help with the inflammation thereafter you can resume using ibuprofen 400 mg every 6 hours Smoking cessation as we discussed Use chlorhexidine mouthwash after each meal, this will hopefully prevent some of the inflammation of the oral cavity and help the area heal faster Prescriptions: New clindamycin HCl [Cleocin HCl] 300 mg capsule 300 mg PO TID 7 Days Qty: 21 0RF prednisone 20 mg tablet 40 mg PO DAILY 4 Days Qty: 8 0RF chlorhexidine gluconate 0.12 % mouthwash 15 ml buccal DAILY Qty: 473 0RF Rx Instructions: swish and spit after each meal No Action prednisone 20 mg tablet 40 mg PO DAILY 3 Days Qty: 6 0RF naproxen 500 mg tablet 500 mg PO BID PRN (Reason: pain) Qty: 14 0RF Rx Instructions: Take with food amoxicillin-pot clavulanate 875-125 mg tablet 1 tab PO Q12H 10 Days Qty: 20 0RF ketorolac 10 mg tablet 10 mg PO Q6H PRN (Reason: pain) Qty: 20 0RF Rx Instructions: received 30gm IM toradol in the urine quetiapine [Seroquel] 50 mg tablet 50 mg PO DAILY albuterol sulfate [ProAir HFA] 90 mcg/actuation HFA aerosol inhaler 2 puff inhalation Q6H PRN ipratropium-albuterol 0.5 mg-3 mg(2.5 mg base)/3 mL solution for nebulization 3 ml inhalation Q4-6H PRN (Reason: wheezing) 30 Days Qty: 180 6RF fluticasone propion-salmeterol [Advair Diskus] 500-50 mcg/dose blister with device 1 ea inhalation clonidine HCl 0.1 mg tablet 0.1 mg PO BEDTIME lamotrigine 100 mg tablet 100 mg PO QAM Print Language: Turkish
[2025-06-06 20:57] VITALS: BP 150/72; PULSE 65; RESP 16; TEMP 36.8; O2SAT 99
--- OUTSIDE RECORDS SUMMARY | 2025-06-06 21:26 | XMS_ITS | Encounter Summary ---
Author Organization [employer] Address [address] [facility] 7t [place] [address] Care Team Providers Care Professor Of Vegetable Science Name Role Phone Dafne Correa MD Primary Care Provide r Viktor Magdaleno RN Unavailable [phone] Floridalma Vivar Unavailable Reason for Visit * Reason Comments [facility]ination [facility] Encounter Details Date Type Department Care Team (Latest Contact Info) Description 06/06/2025 Patient Outreach [facility] [address] [place] [address] Dafne Correa MD [address] [place] [address] [facility] telephone call outreach ) Social History Tobacco Use Types Packs/Day Years [...] AM EST documented as of this encounter Progress Notes * Floridalma Vivar - 06/06/2025 10:43 AM EST CHW Floridalma Vivar, placed outbound call to patient in regards to offer services. CHW introducing herself from [facility] CM Department with CHW's name, department and direct contact number requesting call back. Will re-attempt to contact within 5 days. and address not confirmed. documented in this encounter Plan of Treatment Upcoming Encounters Date Type Department Care Team ([facility] st Contact Info) Description 08/25/2025 2:30 PM EST Office Visit [facility] OPTOMETRY [address] [place] [address] Taisha Magana, OD [address] [place] [address] documented as of this encounter Visit Diagnoses Not on filedocumented in this encounter Care Teams Professor Of Vegetable Science Relationship Specialty Start Date End Date Dafne Correa MD [address] [place] [address] PCP - General Family Medicine 05/18/19 Viktor Magdaleno RN [address] [place] [address] Registered Nurse Family Medicine 05/20/25 Floridalma Vivar 05/20/25 documented as of this encounter
--- OUTSIDE RECORDS SUMMARY | 2025-06-06 21:26 | XMS_ITS ---
Author Organization [employer] Address [address] [place] [address] [address] [place] [address] Care Team Providers Care Patch Machine Operator Name Role Phone Dafne Correa MD Primary Care Provide r Viktor Magdaleno RN Unavailable [phone] Floridalma Vivar Unavailable CM Complex Status:Outreach In Progress (Enrolling) Start date:05/20/2025 Enrollment reason:ADT Feed Overview ED- Pt went to [facility] ED on 05/19/25. Case Team Name Relationship Phone Viktor Magdaleno RN(Responsible Staff) Registered Denisa aguilar [phone] Continued Care and Services Coordination
--- OUTSIDE RECORDS SUMMARY | 2025-06-06 21:26 | XMS_ITS | Clinical Summary ---
Author Organization [employer] Address [address] [facility] 7t [place] [address] Care Team Providers Care Wave Solder Offbearer Name Role Phone Dafne Correa MD Primary Care Provide r Viktor Magdaleno RN Unavailable Floridalma Vivar Unavailable Allergies Active Allergy Reactions Criticality Noted Date [...] Encounters Date Type Department Care Team Description 06/06/2025 Patient Outreach [address] [address] Dafne Correa MD Care Coordination ([facility]3 [facility] Floridalma Vivar telephone call outreach ) 05/23/2025 Patient Outreach [address] [address] Dafne Correa MD Care Coordination ([facility] Floridalma Vivar telephone call outreach) 05/20/2025 Patient Outreach [facility] [address] [place] [address] Dafne Correa MD Care Coordination ([facility] Floridalma Vivar chart review) 05/20/2025 Patient Outreach [facility] [address] [place] [address] Dafne Correa MD Care Management ([facility]- chart review) 05/20/2025 Patient Outreach [facility] [address] [place] [address] Dafne Correa MD 05/19/2025 Orders Only [facility] External Provider, [facility] 03/17/2025 Telephone [facility] MEDICINE [address] [place] [address] Meche Ann [place] CHARTPREP 03/11/2025 Patient Outreach [facility] [address] [place] [address] Dafne Correa MD Pre-visit Planning (SDOH negative. Tobacco screening positive. ) from Last 3 Months Immunizations Immunization Administration [...] Description 08/25/2025 2:30 PM EST Office Visit [facility] OPTOMETRY [address] [place] [address] Taisha Magana, OD [address] [place] [address] Health Maintenance Due Date Last Done Comments [...] 75+ series) 2065 HIV Screening Completed 09/02/2023, /0 08/2022, 10/30/2021, Additional history exists Hepatitis C Screening [...] WO CONTRAST Routine 05/19/2025 6:07 PM EDT HEPATITIS C ANTIBODY Routine 09/02/2023 [...] PM EDT Narrative 05/19/2025 6:09 PM EDT [address] [address] [address] Scan Report Signed Patient: Eleazar Contreras MR#: [id number] : 1990 Acct:[id number] Age/Sex: 34 / F ADM Date: 05/19/25 Loc: HO.ED Attending Dr: Ordering Physician: Ming Tuttle Date of Service: 05/19/25 Procedure(s): CT mastoid Accession Number(s): [id number] cc: Ming Tuttle; Dafne Correa MD Report Number: [id number]: Total DLP = 254.00 mGy-cm Reason for [...] in OV> 05/19/251807 DD/ 06 TD/TT: 05/19/251806 Fire Control Officer: Procedure Note Donotuseinterpreter, Image - 05/19/[address] [address] [address] Scan Report Signed Patient: Eleazar ContrerasMR#: [id number] : 1990Acct:[id number] Age/Sex: 34 / FADM Date: 05/19/25 Loc: HO.ED Attending Dr: Ordering Physician: Ming Tuttle Date of Service: 05/19/25 Procedure(s): CT mastoid Accession Number(s): [id number] cc: Ming Tuttle; Dafne Correa MD Report Number: [id number]: Total DLP = 254.00 mGy-cm Reason for [...] in OV> 05/19/251807 DD/ 06 TD/TT: 05/19/251806 Fire Control Officer: [facility] External Provider IMG CT PROCEDURES Final Result * Hepatitis C Ab (09/02/2023 12:28 PM EST) Hepatitis C Antibody Nonreactive Nonreactive [facility] Comment:Antibodies to HCV no t detected; does not exclude early acuteHCV infection. 09/02/2023 12:2 8 PM EST 09/02/2023 1:24 PM EST Generic External Data Provider LAB BLOOD ORDERAB LES Final Result [facility] [address] [place] [phone] * HIV-1/2 Antigen and Antibodies, Fourth Generation, with Reflexes (09/02/2023 12:28 PM EST) HIV AB/AG Nonreactive Nonreactive [facility] Comment:HIV-1 p24 Ag and/or HIV-1/HIV-2 Ab not detected.A test result that is nonreactive does not exclude thepossibility of exposure to or infection with HIV-1 and/orHIV-2. Nonreactive results in this assay for individualswith prior exposure to HIV-1 and/or HIV-2 may be due toantigen and antibody levels that are below the limit ofdetection of this assay.The Rapid Pathogen Screening HIV Ag/Ab Combo assay result andsupplemental assay results should be interpreted inconjunction with the patient's clinical presentation,history and other laboratory results. If the results areinconsistent with clinical evidence, additional testing issuggested to confirm the result. 09/02/2023 12:2 8 PM EST 09/02/2023 1:24 PM EST us Generic External Data Provider LAB BLOOD ORDERAB LES Final Result [facility] [address] [place] [phone] * HPV mRNA E6/E7 w/Reflex to HPV Genotypes 16, 18/45 (09/02/2023 12:11 PM EST) HPV nRNA E6/E7 Not Detected Not Detected [facility] Comment:Methodology: Transcr iption-Mediated AmplificationThis assay detects E6/E7 viral messenger RNA (mRNA) from 14high-risk HPV types (16,18,31,33,35,39,45,51,52,56,58,59,66,68).Cervical sources are required for HPV testing.If a vaginal source from a patient who has had atotal hysterectomy with removal of cervix wassubmitted, please contact the testing laboratoryfor alternative testing options.For additional information, please refer tohttp://education.[employer]/faq/HAR056u2(This link if provided for information/educational purposes only.)THIS TEST WAS PERFORMED AT:[employer] [place] [phone] FUNK MD HPV mRNA E6/E7 TNP [facility] HPV 16 RNA TNP [facility] HPV 18/45 RNA TNP [facility] 09/02/2023 12:1 1 PM EST 09/03/2023 9:45 AM EST us Generic External Data Provider LAB CYTOLOGY ORDE RABLES Final Result [facility] [address] [place] [address] [phone] * Pap Smear (09/02/2023 12:11 PM EST) 09/02/2023 12:1 1 PM EST 09/03/2023 9:45 AM EST Narrative [facility] - 09/17/2023 6:54 AM EST ----- ------- Name: Eleazar Contreras Age/Sex: 32/F : 1990 Unit#: [id number] Attend Dr: Ayana Lim CNM Re09/02/23 Status: DEP REF Location: [place] Disch: ----- ------- SPEC : [id number] RECD: 09/03/23 STATUS: BRIDGETTE VARNER NUM: [id number] HAYLEE: 09/02/23-12[address] [facility] [address] ENTERED: 09/04/23-1036 SP TYPE: Pap Smr OTHR DR: [facility] ORDERED: Pap Smear Interpretation Satisfactory for evaluation. Negative for intraepithelial lesion or malignancy. HPV mRNA E6/E7: NOT DETECTED This assay detects E6/E7 viral messenger RNA (mRNA) from 14 high-risk HPV types (16, 18, 31, 33, 35, 39, 45, 51, 52, 56, 58, 59, 66, 68) HPV testing performed by [employer], [place], [place]. See reference laboratory portion of the EMR for entire report. Clinical Information LMP: 08/15/2023 Previous PAP test: Unknown date, WNL Material Received ThinPrep-Cervical Copies To: [facility] [address] [place] [address] Ayana Lim [address] Sharma [address] [place] [phone] ----- ------- Signed (signature on file) BEN Sher (ASCP) 09/17/23 0654 ----- ------- END OF REPORT us Generic External Data Provider LAB CYTOLOGY CHIDI DEMPSEY Final Result [facility] [address] [place] [address] [phone] * (ABNORMAL) LIPID PANEL, STANDARD (06/28/2020 11:46 AM EST) LDL Cholesterol 77 mg/dL (calc) [facility] Comment: Reference range: <100 Desirable range <100 mg/dL for primary prevention; <70 mg/dL for patients with CHD or diabetic patients with > or = 2 CHD risk factors. LDL-C is now calculated using the Stevo-Heart calculation, which is a validated novel method providing better accuracy than the Friedewald equation in the estimation of LDL-C. Stevo SS et al. ERASTO. 2013;310(19): 9699-2466 (http://education.[employer].Changba/faq/ZFE813) Chol/HDLC Ratio 3.1 <5.0 (calc) [facility] [...] therapeutic option. LDL Cholesterol 77 mg/dL (calc) [facility] Comment: Reference range: <100 Desirable range <100 mg/dL for primary prevention; <70 mg/dL for patients with CHD or diabetic patients with > or = 2 CHD risk factors. LDL-C is now calculated using the Stevo-Heart calculation, which is a validated novel method providing better accuracy than the Friedewald equation in the estimation of LDL-C. Stevo SS et al. ERASTO. 2013;310(19): 0243-8321 (http://education.[employer].Changba/faq/YTI713) Chol/HDLC Ratio 3.1 <5.0 (calc) [facility] Cholesterol, Total 147 <200 mg/dL [facility] Triglycerides 137 <150 mg/dL [facility] Cholesterol, Total 147 <200 mg/dL [...] LDL-C. Stevo SS et al. ERASTO. 2013;310(19): 0632-2511 (http://education.[employer].Changba/faq/RWH163) LDL Cholesterol 77 mg/dL (calc) [facility] [...] LDL-C. Stevo SS et al. ERASTO. 2013;310(19): 8342-4822 (http://education.[employer].Changba/faq/GFN777) Cholesterol, Total 147 <200 mg/dL [facility] [...] LDL-C. Stevo SS et al. ERASTO. 2013;310(19): 3080-3893 (http://education.[employer].Changba/faq/HHP268) Non-HDL Cholesterol 99 <130 mg/dL (calc) [facility] [...] Brennan MD LAB BLOOD ORDERABLES Final Result [facility] [address] from Last 3 Months or Most Recently Relevant to Health Maintenance Insurance [employer] C3 Care Teams Wave Solder Offbearer Relationship Specialty Start Date End Date Dafne Correa MD [address] [place] [address] PCP - General Family Medicine 05/18/19 Viktor Magdaleno, VANESA [address] [place] [address] Registered Nurse Family Medicine 05/20/25 Floridalma Vivar 05/20/25
--- OUTSIDE RECORDS SUMMARY | 2025-06-06 21:26 | XMS_ITS | Clinical Summary ---
Author Organization [facility] Address [address] [place] [address] Care Team Providers Care Track Grinder Operator Name Role Phone Unavailable Primary Care Provider [...]
--- OUTSIDE RECORDS SUMMARY | 2025-06-06 21:26 | XMS_ITS ---
Author Organization [employer] Address [address] [place] [address] [place] [address] Care Team Providers Care Carpenter Supervisor Wooden [employer] Name Role Phone Dafne Correa MD Primary Care Provide r Viktor Magdaleno RN Unavailable [phone] Floridalma Vivar Unavailable CHW Complex Status:Outreach In Progress (Enrolling) Start date:05/20/2025 Enrollment reason:ADT Feed Overview ED- Pt went to [facility] ED on 05/19/25. Case Team Name Relationship Phone Floridalma Vivar(Responsible Staff) Continued Care and Services Coordination
[2025-06-06] MEDS: oxyCODONE HCl ER 10 MG TAB.ER.12H PO (22:00)
[2025-06-06 22:21] VITALS: BP 149/92; PULSE 68; RESP 18; TEMP 36.8; O2SAT 98
== END 2025-06-06 22:21 | disposition home or self-care (01) ==
PROVIDERS: Emergency Provider Emergency Medicine; PCP Internal Medicine
DX: H92.02 Otalgia, left ear (principal); K08.89 Other specified disorders of teeth and supporting structures; Z72.0 Tobacco use
CPT/HCPCS: 96372; 99284; J1885; J8540